=== PATIENT | female | born 1965 | race Caucasian/White ===

== ENCOUNTER 2020-04-29 13:03 | Outpatient (REF) | payer OTHER, SELFPAY ==
--- NOTE | ~2020-04-29 | US_ITS ---
EXAMINATION: LEFT HIP 2 VIEWS CLINICAL INFORMATION: Pain COMPARISON: None TECHNIQUE: 2 views FINDINGS: No femoral head lesion or deformity. Joint spaces maintained. No soft tissue abnormality. US/US venous duplex LE LT IMPRESSION: No osseous or joint space abnormality. EXAMINATION: LEG VENOUS ULTRASOUND WITH DOPPLER, LEFT CLINICAL INFORMATION: Pain COMPARISON: None TECHNIQUE: Deep venous ultrasound using grayscale and duplex Doppler. FINDINGS: No evidence of any DVT. Normal compressibility and phasic waveforms with respiration. No popliteal fossa abnormality. IMPRESSION: No DVT demonstrated in the left lower extremity.
--- NOTE | ~2020-04-29 | XR_ITS ---
EXAMINATION: LEFT HIP 2 VIEWS CLINICAL INFORMATION: Pain COMPARISON: None TECHNIQUE: 2 views FINDINGS: No femoral head lesion or deformity. Joint spaces maintained. No soft tissue abnormality. XR/XR hip LT min 2V IMPRESSION: No osseous or joint space abnormality. EXAMINATION: LEG VENOUS ULTRASOUND WITH DOPPLER, LEFT CLINICAL INFORMATION: Pain COMPARISON: None TECHNIQUE: Deep venous ultrasound using grayscale and duplex Doppler. FINDINGS: No evidence of any DVT. Normal compressibility and phasic waveforms with respiration. No popliteal fossa abnormality. IMPRESSION: No DVT demonstrated in the left lower extremity.
== END 2020-04-29 13:04 | disposition home or self-care (01) ==
LOC: HO.HMGCX 13:03
PROVIDERS: PCP Internal Medicine; Visit Provider Internal Medicine
DX: M79.662 Pain in left lower leg (principal); M25.552 Pain in left hip
CPT/HCPCS: 73502; 93971

== ENCOUNTER 2020-06-22 11:14 | Outpatient (REF) | payer OTHER, SELFPAY ==
--- NOTE | ~2020-06-22 | MM_ITS ---
EXAMINATION: MM SCREENING DIGITAL BREAST TOMOSYNTHESIS, BILATERAL CLINICAL INFORMATION: Screening. Asymptomatic. The lifetime risk of breast cancer based on the Tyrer-Cuzick Model is 9.7%. COMPARISON: Mammography: October 24, 2017 and studies dating back to November 26, 2011 TECHNIQUE: Digital breast tomosynthesis is performed in both the craniocaudal and mediolateral oblique views along with computer-aided detection (CAD). Synthesized 2D images are generated from the tomosynthesis. FINDINGS: The breasts are almost entirely fatty (ACR BI-RADS breast composition Category a). There are no significant masses, abnormal calcifications, or other abnormalities. MM/MM tomosynthesis screening BI IMPRESSION: There are no significant changes from prior study. ASSESSMENT: BI-RADS 1: Negative RECOMMENDATION: Routine annual mammography screening. This patient's information was entered into a reminder system with a target due date for their next mammogram.
== END 2020-06-22 11:15 | disposition home or self-care (01) ==
LOC: HO.MAMMO 11:14
PROVIDERS: PCP Internal Medicine; Visit Provider Internal Medicine
DX: Z12.31 Encounter for screening mammogram for malignant neoplasm of breast (principal)
CPT/HCPCS: 77063; 77067

== ENCOUNTER 2022-01-20 13:53 | Outpatient (REF) | payer OTHER, SELFPAY ==
--- NOTE | ~2022-01-20 | XR_ITS ---
EXAMINATION: XR HIP, LEFT CLINICAL INFORMATION: Left hip pain. COMPARISON: 04/29/2020 TECHNIQUE: Two views of the left hip. FINDINGS: There is no evidence of acute fracture or dislocation of the left hip. The hip joint space appears maintained with some increased sclerosis about the superior acetabulum where there are also some subchondral cysts present which were present on prior study. No femoral head collapse identified. No destructive bony lesions are appreciated. XR/XR hip LT min 2V IMPRESSION: Stable degenerative change of the left hip with superior acetabular subchondral cysts.
== END 2022-01-20 13:54 | disposition home or self-care (01) ==
LOC: HO.HMGCX 13:53
PROVIDERS: PCP Internal Medicine; Visit Provider Internal Medicine
DX: M25.552 Pain in left hip (principal)
CPT/HCPCS: 73502

== ENCOUNTER 2022-03-10 07:57 | Emergency (ER) | payer OTHER, SELFPAY ==
--- NOTE | ~2022-03-10 | CT_ITS ---
EXAMINATION: CT FACIAL BONES WITH CONTRAST CLINICAL INFORMATION: Right-sided facial swelling. Rule out deep abscess COMPARISON: None TECHNIQUE: 85 cc Omnipaque 350 intravenous contrast was administered. Contiguous helical axial tomographic images through the face were obtained with coronal and sagittal reformatted images obtained and reviewed as well. This CT examination was performed using dose optimization techniques as appropriate, variously including the following: *Automated exposure control *Adjustment of mA and/or kV according to patient size (this includes techniques or standardized protocols for targeted exams where dose is matched to indication/reason for exam; i.e. extremities or head) *Use of iterative reconstruction technique DLP: 374 mGy-cm FINDINGS: There is asymmetric soft tissue induration and hyperenhancement of the right facial soft tissues at the level of the maxilla but no discrete abscess is seen. There is right premalar and infraorbital soft tissue induration and hyperenhancement but no discrete abscess or fluid collection. The paranasal sinuses are well-developed and clear. There is partial opacification of the left mastoid air cells. Globes and orbits are normal. Multiple absent and abnormal teeth are seen consistent with dental caries. CT/CT facial bones w IV con IMPRESSION: Abnormal soft tissue induration and hyperenhancement within the right facial soft tissues as described above. The inflammatory changes extend to the inferior orbit but there are no retro-orbital abnormalities. No discrete fluid collection to suggest abscess. Multiple absent and abnormal teeth are seen. Consider dedicated dental examination.
[2022-03-10 08:00] VITALS: BP 113/73; PULSE 97; RESP 18; TEMP 35.6; O2SAT 95; BMI 34.2
--- NOTE | 2022-03-10 08:31 | ED.DENTAL ---
HPI - Dental/Oral General Chief complaint: Dental/Oral Stated complaint: Dental Infection Time Seen by Provider: 03/10/22 08:05 Source: patient Mode of arrival: ambulatory History of Present Illness HPI Narrative: 56-year-old female with no significant past medical history presented to the ED complaining of right-sided facial swelling and right upper dental pain x 2 weeks. Patient admits to finishing dose of Clindamycin after new year's, then saw PCP who prescribed Keflex which pt reports made sx worse, now on higher dose of Clindamycin and Flagyl x2 days without improvement and was instructed to come to the ED. Reports increasing swelling to top gums with slight drainage. Admits pain radiates to right ear. Denies posterior oropharyngeal swelling, difficulty/inability to swallow, fever, chills, SOB MD Complaint: tooth pain Related Data Allergies Allergy/AdvReac Type Severity Reaction Status Date / Time Penicillins Allergy Hypotension Verified 03/10/22 08:02 Review of Systems Review of Systems: Constitutional: No Fever, No Chills, No Fatigue, No Malaise ENT/Mouth: +facial swelling, +dental pain, Ear Pain, No Nasal Congestion, No Sinus Pain, No Hoarseness, No sore throat, No Rhinorrhea, No Swallowing Difficulty Eyes: No Eye Pain, No Swelling, No Redness, No Vision Changes Cardiovascular: No Chest Pain, No SOB Respiratory: No Cough, No Sputum, No Dyspnea Gastrointestinal: No Nausea, No Vomiting, No Diarrhea, No Constipation, No Abdominal pain, Musculoskeletal: No joint pain, No Myalgias, No Joint Swelling Skin: No Skin Lesions, No rash Neuro: No Weakness, No Dizziness, No Headache Yes all other systems are reviewed and are negative Constitutional: Constitutional: Reports as per HPI [facility] Past Medical History Attestation statement: The following information was validated with the patient. Social History Social History Alcohol intake: unknown Smoked in Last 30 Days: Yes Use of substances other than those prescribed or required for medical reasons: No Advance Directives: No Advance Directives Information Provided: No Patient : No Physical Exam Vital Signs: Vital Signs: Last Vital Signs Temp 96.0 F L 03/10/22 08:00 Pulse 97 03/10/22 08:00 Resp 18 03/10/22 08:00 BP 113/73 03/10/22 08:00 Pulse Ox 95 03/10/22 08:00 O2 Del Method 03/10/22 08:00 BMI result Body Mass Index 34.2 Const: General: cooperative, healthy appearing and no acute distress Orientation/consciousness: patient oriented x3 Limitations: no limitations HEENT: Other: + right-sided facial swelling/edema noted. No trismus. Poor dentition with multiple caries. Right upper posterior molar chronically cracked. + palpable fluctuant abscess to right incisor. No surrounding cellulitis. Head: Yes normal to inspection and Yes atraumatic Ears: hearing grossly normal bilaterally, external ears normal, TM's normal bilaterally and mastoids normal General nose exam: Normal external nose present Teeth and gingiva: poor dentition Throat: Yes posterior oropharynx normal, Yes tonsils normal, Yes uvula midline, No peritonsillar mass, No uvula laterally displaced and No uvular edema Eyes: General: appearance normal, both eyes and all related structures EOM: EOMs intact bilaterally Neck: Neck: Yes normal visual inspection, Yes full ROM, Yes no lymphadenopathy and Yes no meningeal signs Resp: Effort & Inspection: normal respiratory effort, not labored and no respiratory distress Cardio: Rate: regular rate Skin: Rashes: no rashes Wounds: no wounds Neuro: General: patient oriented x3, tone normal and no meningeal signs Gait exam (Neuro): Normal gait present Extrem: General: Yes normal to inspection Course Course Course Narrative: -1112--no leukocytosis. Labs otherwise reassuring CT facial bones w IV con IMPRESSION: Abnormal soft tissue induration and hyperenhancement within the right facial soft tissues as described above. The inflammatory changes extend to the inferior orbit but there are no retro-orbital abnormalities. No discrete fluid collection to suggest abscess. ? Multiple absent and abnormal teeth are seen. Consider dedicated dental examination. >> will I&D localized abscess > likely cause of persistent infection rather than failed outpatient antibiotic Recommended patient continue previously prescribed clindamycin and metronidazole with close dentist follow-up. Admits has appointment to get teeth extracted at the end of the month. Results discussed with patient including worrisome signs and symptoms and strict return precautions, and when to return to the emergency department. They verbalized understanding and feel safe for discharge at this time. Medications Administered Discontinued Medications Generic Name Dose Route Start Last Admin Trade Name Freq PRN Reason Stop Dose Admin Sodium Chloride 1,000 mls @ 999 mls/hr 03/10/22 08:30 03/10/22 09:46 Ns IV 03/10/22 09:30 Infused .Q1H1M AUGUSTIN Infusion Clindamycin Phosphate 600 mg in 50 mls @ 100 mls/hr 03/10/22 08:35 03/10/22 09:46 Cleocin IV 03/10/22 09:04 Infused ONCE ONE Infusion Iohexol 85 ml 03/10/22 10:10 03/10/22 10:11 Iohexol 350 Mg/Ml 75 Ml Infus..Btl IV 03/10/22 10:11 85 ml ONCE ONE Administration Lidocaine HCl 2 ml 03/10/22 08:23 03/10/22 09:00 Lidocaine Hcl 1 % Mpf 2 Ml Vial INFILTRATI 03/10/22 08:24 2 ml ONCE ONE Administration Methylprednisolone Sodium Succinate 60 mg 03/10/22 08:35 03/10/22 09:00 Methylprednisolone Sod Succ 125 Mg/2 Ml Vial IVPUSH 03/10/22 08:36 60 mg ONCE ONE Administration Medical Decision Making Medical Decision Making [facility] Narrative: 56-year-old female with no significant past medical history presented to the ED complaining of right-sided facial swelling and right upper dental pain x 2 weeks. On exam vital signs stable, NAD, nontoxic appearing, physical exam as above. Concern for dental abscess that has not yet been drained vs expanding cellulitis/edema or deeper infection. No evidence of COMPLEX CARE NURSE. Low suspicion of mastoiditis, chronic otitis externa, or intracranial. Low suspicion for severe sepsis Plan: labs lactic/blood cultures, Facial CT, IV dose of Clindamycin, IV Solu-Medrol, reassess Differential Diagnosis Differential Diagnoses: The differential diagnosis associated with the presentation includes As above Admission/Observation Consideration of admission/observation: Escalation of care including admission/observation considered Patient does not meet inpatient criteria, labs reassuring, no evidence of sepsis Consult Healthcare Provider Dr. Barron, ED Attending Lab Data [facility] Lab Attestation statement: I reviewed the patient's lab results. 03/10/22 08:49 03/10/22 08:49 Labs: Lab Results 03/10/22 03/10/22 03/10/22 Range/Units 08:49 08:49 08:49 WBC 8.9 (4.8-10.8) X10*3/uL RBC 4.50 (4.20-5.50) X10*6/uL Hgb 14.1 (12.0-16.0) g/dl Hct 42.8 (37.0-47.0) % MCV 95.1 (80.0-98.0) fL MCH 31.3 (27.0-33.0) pg MCHC 32.9 (31.0-35.0) g/dl RDW 13.8 (11.0-16.0) % Plt Count 258 (160-400) X10*3/uL MPV 9.8 (9.4-12.3) fL Immature Gran % (Auto) 0.4 (0.0-0.4) % Neut % (Auto) 79.6 H (45-73) % Lymph % (Auto) 10.5 L (20-40) % Emmons % (Auto) 6.6 (2-11) % Eos % (Auto) 2.5 (0-4) % Baso % (Auto) 0.4 (0-2) % Lymph # (Auto) 0.9 L (1.2-4.9) X10*3/uL Emmons # (Auto) 0.6 (0.1-1.2) X10*3/uL Eos # (Auto) 0.2 (0.0-0.4) X10*3/uL Baso # (Auto) 0.0 (0.0-0.2) X10*3/uL Abs Immat Gran (auto) 0.04 H (0.00-0.03) X10*3/uL Absolute Neuts (auto) 7.1 (2.0-8.3) x10*3/uL Absolute Nucleated RBC 0.000 (0.0-0.012) X10*3/uL Nucleated RBC % (auto) 0.0 (0.0-0.2) /100WBC Sodium 140 (135-145) mmol/L Potassium 4.2 (3.3-5.1) mmol/L Chloride 107 (96-108) mmol/L Carbon Dioxide 25 (22-29) mmol/L Anion Gap 12 (12-20) BUN 11 (9-16) mg/dL Creatinine 0.82 (0.5-1.4) mg/dL Estim Creat Clear Calc 98.0 Estimated GFR > 60 Random Glucose 103 (60-115) mg/dL Lactic Acid 0.8 (0.5-2.0) mmol/L Calcium 8.8 (8.4-10.2) mg/dL Total Bilirubin 0.6 (0.0-1.0) mg/dL Direct Bilirubin 0.2 (0.0-0.5) mg/dL AST 20 (5-31) U/L ALT 15 (0-31) U/L Alkaline Phosphatase 93 (39-117) U/L Total Protein 7.1 (6.5-8.0) g/dL Albumin 4.0 (3.5-5.0) g/dL Radiology Impression Discussion of test interpretation with radiology: I have reviewed the radiologist's reading. External Record Review Outpatient medications Prescription Management I considered prescription management with: Pain Medication and Antibiotic Social Determinants Absence of dental insurance Procedures Abscess I/D Site: oral Local Anesthetic: lidocaine 1% Amount of anesthesia used (mL): 0.5 Technique: needle aspiration Sent for culture/gram staining?: No Packing used?: none Discharge Plan Discharge Clinical Impression: Gingival abscess Patient Disposition: Home, Self-Care Instructions: Dental Abscess (ED) Additional Instructions: Continue taking previously prescribed antibiotics. Swish and spit with warm salt water at home Have close follow-up with her doctor/dentist Take Tylenol and Motrin for pain/swelling If symptoms persist or worsen, you have fever, increasing swelling or pain return to the emergency department Referrals: Kashif Melton MD [Primary Care Provider] - 3 days (For re-evaluation) Interventions: ED Discharge Assessment Last Done: 03/10/22 11:43 Discharge Date/Time: 03/10/22 11:44
[2022-03-10 08:53] LABS: MANUAL DIFF FLAG NO
[2022-03-10 08:55] LABS: Basophils Percent Auto 0.4 % (0-2); Eosinophils Absolute Auto 0.2 X10*3/uL (0.0-0.4); Eosinophils Percent Auto 2.5 % (0-4); Hematocrit 42.8 % (37.0-47.0); Hemoglobin 14.1 g/dl (12.0-16.0); Imm Gran Abs Auto 0.04 X10*3/uL (0.00-0.03); Imm Gran Pct Auto 0.4 % (0.0-0.4); Lymphocytes Absolute Auto 0.9 X10*3/uL (1.2-4.9); Lymphocytes Percent Auto 10.5 % (20-40); Mean Corpuscular HGB Conc 32.9 g/dl (31.0-35.0); Mean Corpuscular Hemoglobin 31.3 pg (27.0-33.0); Mean Corpuscular Volume 95.1 fL (80.0-98.0); Mean Platelet Volume 9.8 fL (9.4-12.3); Monocytes Absolute Auto 0.6 X10*3/uL (0.1-1.2); Monocytes Percent Auto 6.6 % (2-11); Neutrophils Absolute Auto 7.1 x10*3/uL (2.0-8.3); Neutrophils Percent Auto 79.6 % (45-73); Platelet Count 258 X10*3/uL (160-400); Red Cell Distribution Width 13.8 % (11.0-16.0); White Blood Count 8.9 X10*3/uL (4.8-10.8)
[2022-03-10] MEDS: 0.9 % Sodium Chloride 1,000 ML 999 ML IV (08:56)
[2022-03-10] MEDS: Lidocaine HCl 1 % MPF 2 ML VIAL INFILTRATI (09:00)
[2022-03-10] MEDS: methylPREDNISolone Sod Succ 125 MG/2 ML VIAL 60 MG IVPUSH (09:00)
[2022-03-10 09:11] LABS: Lactic Acid 0.8 mmol/L (0.5-2.0)
[2022-03-10] MEDS: Clindamycin Phosphate/D5W 600 MG/50 ML PIGGYBACK 100 MG IV (09:11)
[2022-03-10 09:21] LABS: Alanine Aminotransferase 15 U/L (0-31); Alkaline Phosphatase 93 U/L (39-117); Anion Gap 12 (12-20); Aspartate Amino Transferase 20 U/L (5-31); Bilirubin Direct 0.2 mg/dL (0.0-0.5); Bilirubin Total 0.6 mg/dL (0.0-1.0); Blood Urea Nitrogen 11 mg/dL (9-16); Calcium 8.8 mg/dL (8.4-10.2); Carbon Dioxide 25 mmol/L (22-29); Chloride 107 mmol/L (96-108); Estimated Glomerular Filt Rate > 60; Glucose Random 103 mg/dL (60-115); Potassium 4.2 mmol/L (3.3-5.1); Sodium 140 mmol/L (135-145); Total Protein 7.1 g/dL (6.5-8.0)
[2022-03-10] MEDS: iohexoL 350 MG/ML 75 ML INFUS..BTL 85 ML IV (10:11)
== END 2022-03-10 11:44 | disposition home or self-care (01) ==
PROVIDERS: Physician Assistant; Emergency Provider Emergency Medicine; PCP Internal Medicine
DX: R60.0 Localized edema (principal); K05.20 Aggressive periodontitis, unspecified; Z79.899 Other long term (current) drug therapy
CPT/HCPCS: 36415; 41800; 70487; 80048; 80076; 83605; 85025; 87040; 96361; 96374; 96375; 99284; J2930; Q9967

== ENCOUNTER 2022-04-24 13:41 | Outpatient (REF) | payer OTHER, SELFPAY ==
--- NOTE | ~2022-04-24 | FL_ITS ---
EXAMINATION: FL ARTHROGRAM HIP, LEFT CLINICAL INFORMATION: Unilateral primary osteoarthritis. COMPARISON: None. TECHNIQUE: Following explaining fluoroscopy-guided left hip steroid injection procedure, benefits and risks, a written consent was obtained. Patient was placed supine on fluoroscopy table and left anterior aspect of the hip joint space was exposed. A marker was placed along the injection site along the lateral hip on the skin. The skin marker was cleaned with 2% chlorhexidine solution. 1% lidocaine was injected at the puncture site. A 22-gauge spinal needle was then inserted from the skin to the lateral border of the left femoral neck and 2 mL of nonionic contrast was injected. Subsequently, 80 mg of Depo-Medrol and 7 mL of 1% lidocaine was injected as an 8 mL volume and needle withdrawn. A simple Band-Aid was applied at the puncture site. Patient tolerated the procedure extremely well. FINDINGS: There are no fractures or dislocations. No joint effusion is identified. No bone, joint or soft tissue abnormality is demonstrated. There is contrast opacifying an irregular-appearing joint space likely due to a hypertrophied synovium. Fluoroscopy-guided 80 mg of Depo-Medrol and 1% lidocaine was injected. FLUOROSCOPY TIME: 1.1 min. DOSE AREA PRODUCT: 15.080 uGy-m2 (microgray-meter squared). FL/FL arthrogram hip LT IMPRESSION: Successful fluoroscopically-guided left hip steroid injection.
== END 2022-04-24 13:42 | disposition home or self-care (01) ==
LOC: HO.XRAY 13:41
PROVIDERS: PCP Internal Medicine; Visit Provider Physician Assistant
DX: M16.12 Unilateral primary osteoarthritis, left hip (principal)
CPT/HCPCS: 27093; 73525

== ENCOUNTER 2022-05-16 09:35 | Outpatient (REF) | payer OTHER, SELFPAY ==
--- NOTE | ~2022-05-16 | XR_ITS ---
EXAMINATION: XR TIBIA AND FIBULA, RIGHT CLINICAL INFORMATION: Leg pain COMPARISON: None available. TECHNIQUE: AP and lateral views of the right tibia and fibula were obtained. FINDINGS: The bones and soft tissues are normal. No fracture. No osseous lesions. XR/XR tibia fibula RT 2V IMPRESSION: Normal right tibia and fibula.
== END 2022-05-16 09:36 | disposition home or self-care (01) ==
LOC: HO.HOSX 09:35
PROVIDERS: PCP Internal Medicine; Visit Provider Physician Assistant
DX: M89.8X6 Other specified disorders of bone, lower leg (principal); M16.12 Unilateral primary osteoarthritis, left hip
CPT/HCPCS: 73590

== ENCOUNTER 2022-08-07 17:00 | Outpatient (RCR) | payer OTHER, SELFPAY ==
--- NOTE | 2022-07-31 07:54 | MHC.PT.EP ---
[facility] [place] Office [place] Office [place] Office [address] Driss Lainez [address] [phone] F: [phone] F: [phone] F: [phone] F: [phone] Physical Therapy Plan of Care Date of Evaluation: Date of Surgery: Diagnosis: unilateral primary OA, L hip Assessment: 56 y/o female referred to PT with L hip OA. S/s consistent with trochanteric bursitis and hip OA and ?overlapping lumbar dysfunction secondary to decreased L hip AROM, decreased L hip strength, increased pain, increased TTP over bursa, and impaired gait pattern resulting in pain and difficulty with walking, standing, stairs, sleeping, donning/doffing shoes/socks, and rolling in bed. REcommend PT 2x/week for 5 weeks to address impairments, implement HEP, and optimize functional mobility. Pt can only come 1x/week d/t high co=pay Frequency and Duration: The patient will be seen 1x/week for 6 weeks Short Term Goals: 3 weeks Compliant with HEP Improve L hip AROM by 5 degrees all planes to optimize muscle-length tension relationship Ehr Trainer Goals: 6 weeks I with HEP and self management of sx Pt will demonstrate improved stair management showing step through pattern and one rail Pt will demonstrate more symmetrical gait pattern with pain < 4/10 Treatment Plan: Modalities to reduce pain, spasms and effusion. Manual therapy to restore motion and function. Therapeutic exercise to improve strength and flexibility. Neuromuscular re-education for posture and balance. Therapeutic activities to return to functional activities of daily living. Electronically signed by: Sravani Gonzalez PT Please sign and return to therapist. Thank you for your referral.
--- NOTE | 2022-10-09 10:54 | MHC.PT.DC ---
[facility] [place] Office [place] Office [place] Office [address] Driss Lainez [address] [phone] F: [phone] F: [phone] F: [phone] F: [phone] Physical Therapy Discharge Report Diagnosis: unilateral primary OA, L hip Date of Surgery: Date of Evaluation: 07/31/22 Date of Discharge: 10/09/22 Treatments to Date: 3 Cancellations to Date: 0 No Shows to Date: 0 Discharge Status: Independent with HEP Discharge Summary: Pt only attended 2 visits following initial evaluation with HEP established. D/c at this time d/t lack of f/u with further visits. Electronically signed by: Sravani Gonzalez PT Please sign and return to therapist. Thank you for your referral.
== END 2022-10-09 10:55 | disposition home or self-care (01) ==
LOC: HO.PTCHIC 17:00
PROVIDERS: PCP Internal Medicine; Visit Provider Physician Assistant
DX: M16.12 Unilateral primary osteoarthritis, left hip (principal)
CPT/HCPCS: 97110; 97140; 97161

== ENCOUNTER 2022-09-14 10:06 | Outpatient (AMB) | payer OTHER, SELFPAY ==
[2022-09-14 10:10] VITALS: BMI 34.2
--- NOTE | 2022-09-14 10:10 | MHC.OFFVIS ---
Intake Vital Signs 09/14/22 10:10 Height 5 ft 8 in Weight 225 lb BMI 34.2 Intake Visit Reasons: OV - Left Hip OA - Arthrogram 04/24/22 Intake Note: Crista is a 56 year old female who presents today for a follow up for her left hip pain, arthrogram 04/24/22. Patient reports her hip injection gave her a couple days of relief. She states she wasnt sure if she had to take it easy when she got the shot. Allergies Penicillins Allergy (Verified 09/14/22 10:13) Hypotension HPI OV - Left Hip OA - Arthrogram 04/24/22 HPI Details 56-year-old female who presents in the office today for a follow up of left hip pain. She reports an increase in pain after she went on vacation. The patient had a left hip arthrogram performed on 04/24/2022, which gave her a few days relief. She confirms left hip and right knee taping. Patient is going on a cruise in 11/2022. She would like to get the cortisone injection in 10/2022. [facility] Medical History (Updated 09/14/22 @ 10:14 by Yesenia Corado) History of high cholesterol Social History Alcohol intake: current Patient Tobacco Use Status: Former Tobacco user Current occupational status: employed Review of Systems Const All systems reviewed & are unremarkable except as noted in HPI and below Physical Exam Vital Signs: BMI result Body Mass Index 34.2 Const General: cooperative and no acute distress Orientation/consciousness: patient oriented x3 Resp Effort & Inspection: normal respiratory effort and able to speak in complete sentences Cardio Peripheral pulses: Peripheral pulses 2+ throughout Neuro General: patient oriented x3 Extrem Other: Left hip: Normal to inspection. No ecchymosis, erythema, or edema. Full hip ROM in all planes. No tenderness to palpation over the greater trochanteric bursa. 3/5 strength with resisted hip flexion, knee extension, abduction, and abduction. Slightly limited internal and external rotation due to groin pain. Able to perform straight leg raise. NVI. Psych Mental Status: mental status grossly normal Assessment & Plan Assessment & Plan (1) Osteoarthritis of left hip: Code(s): M16.12 - Unilateral primary osteoarthritis, left hip Plan Ms. Rodríguez is a 56-year-old female who presents in the office today for a follow up of left hip pain. She reports an increase in pain after she went on vacation. The patient had a left hip arthrogram performed on 04/24/2022, which gave her a few days relief. She confirms left hip and right knee taping. Patient is going on a cruise in 11/2022. She would like to get the cortisone injection in 10/2022. I will place the order for the patient to have a left hip cortisone injection under ultrasound. She will continue to work with physical therapy. I discussed the role of conservative treatment verses surgical intervention. Follow up will be PRN, or sooner if needed. Orders: Orders FL arthrogram hip LT Today M16.0 - Bilateral primary osteoarthritis of hip Patient Instructions: Scribed for Gayatri Cardoso PA-C by Malika Suero, biomedical equipment technician, on 09/14/2022 at 10:07 am, EST. Your attestation Coding Level of Care Code Est Pt Level 3 (01565) Diagnoses Osteoarthritis of left hip M16.12
== END 2022-09-14 10:34 | disposition home or self-care (01) ==
PROVIDERS: PCP Internal Medicine; Visit Provider Physician Assistant
DX: M16.12 Unilateral primary osteoarthritis, left hip (principal)
CPT/HCPCS: 99213

== ENCOUNTER → 2022-09-14 10:06 | Outpatient (BNVA) | payer OTHER, SELFPAY | PROVIDERS: PCP Internal Medicine; Visit Provider Physician Assistant ==

== ENCOUNTER 2022-11-20 11:46 | Outpatient (REF) | payer OTHER, SELFPAY ==
--- NOTE | ~2022-11-20 | FL_ITS ---
EXAMINATION: XR ARTHROGRAM HIP, LEFT CLINICAL INFORMATION: Significant osteoarthritis. COMPARISON: Fluoroscopy-guided steroid injection 04/24/2022. TECHNIQUE: Following explaining fluoroscopy-guided left hip steroid injection procedure, benefits and risks, informed written consent was obtained. Patient was placed supine on fluoroscopy table and left anterior aspect of the joint space was exposed. The area was cleaned in the usual sterile manner. 1% lidocaine was injected at puncture site. A 22-gauge spinal needle was then inserted from the marked site on the skin into the joint space along the lateral femoral neck and 2 to 3 mL of nonionic contrast was injected under fluoroscopy. A single image was obtained documenting contrast in the joint space. Subsequently a combination of 80 mg of Depo-Medrol, 8 mL of 1% lidocaine as a 10 mL volume with saline was injected and needle withdrawn. Complete hemostasis achieved at puncture site. Simple dressing applied postprocedure. Patient tolerated procedure extremely well. FINDINGS: There is significant loss of left hip joint space with sclerosis along the lateral joint space. No lytic process seen. There is no fracture. FLUOROSCOPY TIME: 32 seconds. DOSE AREA PRODUCT: 1095 uGy-m2 (microgray-meter squared) FL/FL arthrogram hip LT IMPRESSION: Successful ultrasound-guided left hip steroid injection performed without immediate complications.
== END 2022-11-20 11:47 | disposition home or self-care (01) ==
LOC: HO.XRAY 11:46
PROVIDERS: Visit Provider Physician Assistant
DX: M16.0 Bilateral primary osteoarthritis of hip (principal)
CPT/HCPCS: 27093; 73525

== ENCOUNTER → 2022-11-20 11:48 | Outpatient (BNV) | payer OTHER, SELFPAY | PROVIDERS: Visit Provider Radiology Diagnostic Radiology | DX: M16.12 Unilateral primary osteoarthritis, left hip (principal) | CPT/HCPCS: 27093; 73525 ==

== ENCOUNTER 2023-02-01 13:24 | Outpatient (REF) | payer OTHER, SELFPAY ==
--- NOTE | ~2023-02-01 | FL_ITS ---
Left hip steroid injection Indications: Left hip pain. Orthopedics request intra-articular steroid injection Procedure: Risks and benefits and possible complications were discussed with the patient and the consent form was signed. The patient was placed supine on the fluoroscopy table. The left hip was prepped and draped in normal sterile fashion. 1% buffered lidocaine was used for anesthesia. A 22-gauge spinal needle was used to access the hip joint. Intra-articular position of the needle within the hip joint was verified using 3 cc of Omnipaque 300. A total of 5 mL of 1% lidocaine and 80 mg Depo-Medrol was then injected into the hip joint. The needle was then removed and a Band-Aid was applied to the injection site. The patient tolerated the procedure well. There were no immediate complications. FL/FL arthrogram hip LT Impression: Fluoroscopic left hip steroid injection The procedure was performed by Domingo Bautista PA-C, and directly supervised by Dr. Hartmann.
== END 2023-02-01 13:25 | disposition home or self-care (01) ==
LOC: HO.XRAY 13:24
PROVIDERS: Visit Provider Physician Assistant
DX: M16.12 Unilateral primary osteoarthritis, left hip (principal)
CPT/HCPCS: 27093; 73525

== ENCOUNTER → 2023-02-01 13:28 | Outpatient (BNV) | payer OTHER, SELFPAY | PROVIDERS: Visit Provider Student in an Organized Health Care Education/Training Program | DX: M16.12 Unilateral primary osteoarthritis, left hip (principal) | CPT/HCPCS: 20610; 77002 ==

== ENCOUNTER 2023-05-03 12:55 | Outpatient (REF) | payer OTHER, SELFPAY ==
--- NOTE | ~2023-05-03 | FL_ITS ---
LEFT HIP STEROID INJECTION INDICATIONS: Left hip pain. Orthopedic surgery requests intra-articular steroid injection PROCEDURE: Risks and benefits and possible complications were discussed with the patient and the consent form was signed. The patient was placed supine on the fluoroscopy table. The left hip was prepped and draped in normal sterile fashion. 1% buffered lidocaine was used for anesthesia. A 22-gauge spinal needle was used to access the left hip joint. Intra-articular position of the needle within the hip joint was verified using 3 cc of Omnipaque 300. A total of 5 mL of 1% lidocaine and 80 mg Depo-Medrol was then injected into the hip joint. The needle was then removed and a Band-Aid was applied to the injection site. The patient tolerated the procedure well. There were no immediate complications. Solitary image demonstrates complete superior joint space loss with [id number] appearance, subchondral sclerosis and cystic changes of the femoral head and superior acetabulum, and marginal acetabular and subcapital osteophytes. Findings are consistent with moderate to advanced osteoarthrosis. FL/FL arthrogram hip LT IMPRESSION: Successful fluoroscopic guided left hip intra-articular steroid injection. The procedure was performed by Domingo Bautista PA-C, and directly supervised by Dr. Montoya.
== END 2023-05-03 12:56 | disposition home or self-care (01) ==
LOC: HO.XRAY 12:55
PROVIDERS: PCP Internal Medicine; Visit Provider Physician Assistant
DX: M16.12 Unilateral primary osteoarthritis, left hip (principal)
CPT/HCPCS: 27093; 73525

== ENCOUNTER → 2023-05-03 12:57 | Outpatient (BNV) | payer OTHER, SELFPAY | PROVIDERS: PCP Internal Medicine; Visit Provider Physician Assistant Surgical | DX: M16.12 Unilateral primary osteoarthritis, left hip (principal) | CPT/HCPCS: 20610; 77002 ==

== ENCOUNTER 2023-05-22 16:56 | Outpatient (REF) | payer OTHER, SELFPAY ==
--- NOTE | ~2023-05-22 | XR_ITS ---
EXAMINATION: XR KNEE, LEFT CLINICAL INFORMATION: Bilateral knee pain COMPARISON: None available. TECHNIQUE: Four views of the left knee. FINDINGS: No fracture or joint effusion. Tricompartment small marginal osteophytes mild narrowing of the patellofemoral joint compartment. Question of 3 mm loose body within the knee joint, best appreciated on the lateral view. XR/XR knee LT 4V IMPRESSION: 1. Mild osteoarthritis. 2. Question of 3 mm loose body within the knee joint.
--- NOTE | ~2023-05-22 | XR_ITS ---
EXAMINATION: XR KNEE, RIGHT CLINICAL INFORMATION: Bilateral knee pain COMPARISON: None available. TECHNIQUE: Four views of the right knee. FINDINGS: No fracture. Small joint effusion. Small tricompartment marginal osteophytes. Mild to moderate narrowing of the patellofemoral joint is seen. No abnormal soft tissue calcification. XR/XR knee RT 4V IMPRESSION: Mild to moderate osteoarthritis of the patellofemoral joint.
== END 2023-05-22 16:57 | disposition home or self-care (01) ==
LOC: HO.XRAY 16:56
PROVIDERS: PCP Internal Medicine; Visit Provider Internal Medicine
DX: M25.561 Pain in right knee (principal); M25.562 Pain in left knee
CPT/HCPCS: 73564

== ENCOUNTER 2023-05-24 08:54 | Outpatient (AMB) | payer OTHER, SELFPAY ==
--- NOTE | 2023-05-24 08:57 | A.OFFVIS_ITS ---
Intake Intake Visit Reasons: Newprob-B/L knee pain-mainly right knee pain Intake Note: Crista is a 57 year old female who presents today for a evaluation of her bilateral knee pain. Patient reports having ongoing pain for a couple months, however its been getting worse for about a month. She states that her right knee is worse than the left knee. Pain is worse when sitting, standing, using the stairs and walking. Patient has tried and failed 3 + Naproxen/ibuprofen.Patient has tried and failed 3 + months of at home exercises. Patient has tried and failed knee brace. Patient has had a cortisone injection in the past for her left knee which gave her 4-5 months of relief. Allergies Penicillins Allergy (Verified 05/24/23 09:03) Hypotension HPI Newprob-B/L knee pain-mainly right knee pain HPI Details 57-year-old female who presents in the [facility] today for an evaluation of bilateral knee pain. Patient reports ongoing pain for a couple of months, increasing in the past month. She report the right knee is worse then the left knee. Pain increases when sitting, standing, use of stairs, or ambulating. Cisco todd has tried and failed more then 3 months of Naproxen and Ibuprofen. She has tried and failed 3 months of home exercises. She has also tried a knee brace with no relief. Patient reports the pain radiates down the bilateral lower extremities. She states she has a pinched nerve in the legs. She denies numbness and tingling. She reports having bilateral lower extremity edema. She is interested in surgical intervention. She states the pain is affecting her daily activities and keeping her from doing what she would like. Patient states she had a cortisone injection in the past that gave her 4-5 months of relief. 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 No ecchymosis, erythema, or joint effusion. No tenderness to palpation to the medial or lateral joint lines. Full knee extension and flexion. Mild crepitus felt with ROM. NVI. Left hip: Normal to inspection. No ecchymosis, erythema, or edema. Full hip ROM in all planes. No tenderness to palpation over the greater trochanteric bursa. 3/5 strength with resisted hip flexion, knee extension, abduction, and abduction. Slightly limited internal and external rotation due to significant groin pain. Able to perform straight leg raise. Positive Stinchfield test. NVI. Office Procedures Joint Injection/Drain Joint Injection/Drain Primary Site: right knee Secondary Site: left knee Prep: site was prepped using aseptic technique, ethochloride spray was applied and injection warnings given Injected: 80 mg of, DepoMedrol, with 8 mL of (2% plain lido ) and in the joint Approach Used: anterolateral Procedure: The patient tolerated the procedure well, but had some pain with the injection and there was some relief with the local anesthesia Coding 02014 - Large joint Procedure code (CPT) selection complete Assessment & Plan Assessment & Plan (1) Osteoarthritis of right knee: Code(s): M17.11 - Unilateral primary osteoarthritis, right knee (2) Osteoarthritis of left knee: Code(s): M17.12 - Unilateral primary osteoarthritis, left knee Plan Ms. Rodríguez is a 57-year-old female who presents in the office today for an evaluation of bilateral knee pain. Patient reports ongoing pain for a couple of months, increasing in the past month. She report the right knee is worse then the left knee. Pain increases when sitting, standing, use of stairs, or ambulating. Patient has tried and failed more then 3 months of Naproxen and Ibuprofen. She has tried and failed 3 months of home exercises. She has also tried a knee brace with no relief. Patient reports the pain radiates down the bilateral lower extremities. She states she has a pinched nerve in the legs. She denies numbness and tingling. She reports having bilateral lower extremity edema. She is interested in surgical intervention. She states the pain is affecting her daily activities and keeping her from doing what she would like. Patient states she had a cortisone injection in the past that gave her 4-5 months of relief. Bilateral knees: The patient was offered a cortisone injection in the bilateral knees with 80 mg of DepoMedrol. The patient was explained the risk, benefits, and alternatives to receiving this injection. After receiving consent for the injection, the patient had the procedure done while in office today. The patient tolerated the procedure well with no complications. Follow up will be PRN, or sooner if needed. Bilateral lower extremity edema: Of note on exam today, the patient was complaining of new bilateral lower leg edema. Discussed to follow up with PCP. Left hip: Dr. Sin was available to see the patient with me while in the office today and a collaborative treatment plan was made. Discussed conservative versus surgical intervention (left total hip arthroplasty). Information was given to the surgical territory manager, who was available to meet with the patient today. Patient understands that she has to wait three months from her last hip intraarticular injection before she can be scheduled for surgery. She was also instructed to be evaluated by a dentist prior to proceeding with a total hip arthroplasty. An appointment to see Physiatry was placed today for further eval uation of the lower back and nerve pain. Follow up will be pending surgical scheduling, or sooner if needed. Patient Instructions: Scribed by Malika Suero medical appliance maker, for Gayatri Cardoso PA-C on 05/24/2023 at 9:00 am, EST. Coding Level of Care Code Est Pt Level 4 (73142) Diagnoses Osteoarthritis of right knee M17.11 Osteoarthritis of left knee M17.12 CPT Codes Coding - 62840 Large joint: 93772 - Large joint ([id number])
== END 2023-05-24 10:05 | disposition home or self-care (01) ==
PROVIDERS: PCP Internal Medicine; Visit Provider Physician Assistant
DX: M17.0 Bilateral primary osteoarthritis of knee (principal); M16.12 Unilateral primary osteoarthritis, left hip
CPT/HCPCS: 20610; 99214

== ENCOUNTER → 2023-05-24 08:54 | Outpatient (BNVA) | payer OTHER, SELFPAY | PROVIDERS: PCP Internal Medicine; Visit Provider Physician Assistant | DX: M17.0 Bilateral primary osteoarthritis of knee (principal) | CPT/HCPCS: 20610; J1040 ==

== ENCOUNTER 2023-06-22 08:56 | Outpatient (RCR) | payer OTHER, SELFPAY ==
--- NOTE | 2023-06-22 10:36 | MHC.PT.DC ---
[facility] [place] Office [place] Office [place] Office [address] Driss Lainez [address] [phone] F: [phone] F: [phone] F: [phone] F: [phone] Physical Therapy Discharge Report Diagnosis: prehab LEFT Total Hip Arthroplasty Date of Surgery: Date of Evaluation: 06/22/23 Date of Discharge: Treatments to Date: 1 Cancellations to Date: No Shows to Date: Discharge Status: Discharge Summary: Patient is a pleasant 57 y.o. female who is referred to PT by Gayatri Cardoso PA-C with Dx of LEFT Total Hip Arthroplasty prehab, surgery is scheduled for 08/2023. She presents with antalgic gait, pain, weakness, limited ROM. Patient current functional limitations are ambulating, sit to stand low surfaces, stair use, putting on shoes/socks, standing to cook. This visit I reviewed non weightbearing HEP, educated her on and had her practice proper gait sequencing with cane, use of stairs with cane and railing and discussed hip precautions and DME in preparation for surgery. All patient questions were answered, no further PT at this time. Electronically signed by: Giovanny Perez, PT, DPT Please sign and return to therapist. Thank you for your referral.
== END 2023-06-22 10:37 | disposition home or self-care (01) ==
LOC: HO.PT 08:56
PROVIDERS: PCP Internal Medicine; Visit Provider Physician Assistant
DX: M16.12 Unilateral primary osteoarthritis, left hip (principal)
CPT/HCPCS: 97110; 97161; 97535

== ENCOUNTER → 2023-08-10 09:01 | Outpatient (BNVA) | payer OTHER, SELFPAY | PROVIDERS: PCP Internal Medicine; Visit Provider Orthopaedic Surgery ==

== ENCOUNTER → 2023-08-23 11:15 | Outpatient (BNV) | payer OTHER, SELFPAY | PROVIDERS: Admitting Provider Orthopaedic Surgery; PCP Internal Medicine; Visit Provider Internal Medicine Cardiovascular Disease | DX: Z01.818 Encounter for other preprocedural examination (principal) | CPT/HCPCS: 93010 ==

== ENCOUNTER 2023-08-31 10:01 | Outpatient (REF) | payer OTHER, SELFPAY ==
--- NOTE | ~2023-08-31 | XR_ITS ---
EXAMINATION: XR SHOULDER, RIGHT CLINICAL INFORMATION: Pain in right shoulder COMPARISON: None available. TECHNIQUE: Three views of the right shoulder. FINDINGS: No acute fracture or dislocation. The glenohumeral and acromioclavicular alignment is anatomic with preserved joint spaces. No acute soft tissue abnormality. No abnormal soft tissue calcifications. XR/XR shoulder RT min 2V IMPRESSION: No acute fracture or dislocation.
--- NOTE | ~2023-08-31 | XR_ITS ---
EXAMINATION: XR HIP, LEFT CLINICAL INFORMATION: Pain in the left hip COMPARISON: Left hip radiograph 01/20/2022 TECHNIQUE: One view of the pelvis and two views of the left hip. FINDINGS: Severe osteoarthritic changes involving the left hip with joint space narrowing, subchondral sclerosis and cystic changes with deformity of the left femur head. No acute fracture. The right hip is adequately aligned with mild joint space narrowing. The pubic symphysis and bilateral sacroiliac joints are intact. Degenerative changes of the visualized lower lumbar spine. Calcification in the right upper inner thigh. XR/XR hip LT min 2V IMPRESSION: Severe left hip osteoarthritic changes.
== END 2023-08-31 10:02 | disposition home or self-care (01) ==
LOC: HO.HOSX 10:01
PROVIDERS: PCP Internal Medicine; Visit Provider Physician Assistant
DX: M25.552 Pain in left hip (principal); M25.511 Pain in right shoulder; Z96.652 Presence of left artificial knee joint
CPT/HCPCS: 73030; 73502

== ENCOUNTER 2023-08-31 10:01 | Outpatient (AMB) | payer OTHER, SELFPAY ==
[2023-08-31 10:19] VITALS: BMI 34.2
--- NOTE | 2023-08-31 10:19 | A.OFFVIS_ITS ---
Vital Signs 08/31/23 10:19 Height 5 ft 8 in Weight 225 lb BMI 34.2 Intake Visit Reasons: Pre-Op: L LEYDA w/NE 09/04/23 Intake Note: Crista is a 57 year old female who presents today pre operatively for Left LEYDA w/NE 09/04/23. Patient reports she is having a lot of pain in her right shoulder for about 2 days. Allergies Penicillins Allergy (Verified 08/31/23 10:21) Hypotension Medication List - Last Reconciled 08/31/23 by Aldo Kiser PA-C acetaminophen (Acetaminophen Extra Strength) 1,000 mg PO QID PRN atorvastatin 10 mg PO DAILY budesonide-formoterol 80-4.5 mcg/actuation (Symbicort) 2 puffs inhalation BID celecoxib (Celebrex) 200 mg (2 x 100 mg) PO BID PRN 30 days gabapentin 400 mg PO BEDTIME levothyroxine 175 mcg PO DAILY omeprazole 20 mg PO DAILY walker Folding Front wheeled walker HPI Comments Details: Ms Rodríguez presents to the office today for preop visit. She is scheduled for left total hip arthroplasty with Dr. Sin. She continues to have ongoing pain and difficulty with ambulation in the left hip, which is affecting her quality of life; therefore, she has elected to move forward with surgery. She is on chronic pain medication oxycodone 10mg tabs prn- oxycodone 15mg q 6 hrs--> has been on this medication for atleast 3 years [facility] Medical History (Updated 08/23/23 @ 10:20 by Crista Petty RN) Arthritis Thyroid disease GERD (gastroesophageal reflux disease) Asthma History of high cholesterol Surgical History (Updated 08/31/23 @ 11:33 by Aldo Kiser PA-C) Hx of cholecystectomy H/O colonoscopy Social History (Updated 08/31/23 @ 10:23 by Yesenia Corado) Are you a primary direct care counselor to a significant other at home: No Do you presently have visiting nurse or other home services: No Alcohol intake: current Alcohol intake frequency: does not drink Patient Tobacco Use Status: Current everyday Tobacco user Cigarettes Per Day: 2 Current occupational status: employed 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 Review of Systems Const All systems reviewed & are unremarkable except as noted in HPI and below Physical Exam Vital Signs: BMI result Body Mass Index 34.2 Const General: cooperative and no acute distress Orientation/consciousness: patient oriented x3 HEENT Head: Yes normal to inspection, Yes normocephalic and Yes atraumatic Eyes General: appearance normal, both eyes and all related structures Neck Neck: Yes normal visual inspection and Yes no lymphadenopathy Resp Effort & Inspection: normal respiratory effort and able to speak in complete sentences Cardio Rate: regular rate Peripheral pulses: Peripheral pulses 2+ throughout GI Inspection: Yes normal to inspection Palpation (GI): Soft to palpation Skin General skin exam: no rashes or lesions noted Neuro General: patient oriented x3 Extrem Other: Left hip: Normal to inspection. No ecchymosis, erythema, or edema. Full hip ROM in all planes. No tenderness to palpation over the greater trochanteric bursa. 3/5 strength with resisted hip flexion, knee extension, abduction, and abduction. Slightly limited internal and external rotation due to groin pain. Able to perform straight leg raise. NVI. Psych Appearance: grossly normal Mental Status: mental status grossly normal Results Reviewed Results Reviewed: Xrays were obtained in the office today and personally reviewed by me of the left hip show degenerative changes of the femoral head Assessment & Plan Assessment & Plan (1) Status post total left knee replacement: Code(s): Z96.652 - Presence of left artificial knee joint Category: Surgical Plan I discussed in detail the procedure and what to expect pre and post operatively. We discussed the risks, benefits and alternatives to the surgery as well as the rehabilitation course. The risks; which include, but are not limited to infection, bleeding, nerve injury, ongoing pain, swelling, and stiffness, perioperative risk of injury to bones and soft tissues, and blood clots. I?ve answered all questions and with their understanding they have consented to move forward with Left total hip arthroplasty with Dr. Sin An order for PT was sent to [facility] We discussed post op pain mgmnt and since she has chronic opiate rx with her PCP, she will not require post op pain medication through our office on discharge Orders: Orders XR hip LT min 2V Today M25.552 - Pain in left hip XR shoulder RT min 2V Today M25.511 - Pain in right shoulder PT Evaluation and Treatment Today Z96.652 - Presence of left artificial knee joint Patient Instructions: Scribed for Ta-Izabella Kiser PA-C, by candice Weiss scribe, on 08/31/2023 at 10:15 AM EST.? I, Aldo Kiser PA-C, have personally reviewed and agree with the information entered by the scribe. Coding Level of Care Code Est Pt Level 3 (90151) Diagnoses Status post total left knee replacement Z96.652
== END 2023-08-31 12:37 | disposition home or self-care (01) ==
LOC: HO.HOS 10:01
PROVIDERS: PCP Internal Medicine; Visit Provider Physician Assistant
DX: Z96.642 Presence of left artificial hip joint (principal)
CPT/HCPCS: 99024

== ENCOUNTER 2023-09-04 07:49 | Inpatient (IN) | payer OTHER, SELFPAY ==
--- NOTE | 2023-08-23 | ECG_ITS ---
Test Reason : preop Blood Pressure : / mmHG Vent. Rate : 061 BPM Atrial Rate : 061 BPM P-R Int : 148 ms QRS Dur : 080 ms QT Int : 420 ms P-R-T Axes : 069 030 030 degrees QTc Int : 422 ms Normal sinus rhythm Normal ECG No previous ECGs available Referred By: Amaya Kessler Electronically Signed By:CARLOZ DENISE MD
[2023-08-23 10:33] VITALS: BMI 36.6
[2023-08-23 10:38] VITALS: BP 124/57; PULSE 72; RESP 18; O2SAT 96
--- NOTE | 2023-08-23 10:55 | HO.ANESPROP2 ---
Documented by User: Amaya Kessler NP 09/03/23 09:49 HPI - Anesthesia Eval Consult details Narrative: 57yo F for Left Hip Total Replacement, 09/04/23 Medically optimized per PCP No recent illness No CP / SOB with activity limited d/t hip pain Asthma: Stable. No rescue inhaler use recently GERD: controlled with ppi PMFSH Active Problems Active Problems: All Active Problems Osteoarthritis of left knee (Acute) Osteoarthritis of right knee (Acute) Contusion of right tibia (Acute) Osteoarthritis of left hip (Acute) Past Medical History Medical History Arthritis Thyroid disease GERD (gastroesophageal reflux disease) Asthma History of high cholesterol Family History Family history of problems with anesthesia: No Surgical History Surgical History Hx of cholecystectomy H/O colonoscopy History of Problems with Anesthesia: No Social History Social History Are you a primary nurse behavioral health care to a significant other at home: No Do you presently have visiting nurse or other home services: No Alcohol intake: current Alcohol intake frequency: does not drink Patient Tobacco Use Status: Current everyday Tobacco user Cigarettes Per Day: 2 Use of substances other than those prescribed or required for medical reasons: No Have you been hit, kicked, punched, or otherwise hurt by someone within the past year? 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 Allergies Allergy/AdvReac Type Severity Reaction Status Date / Time Penicillins Allergy Severe Hypotension Verified 09/04/23 07:38 Home Medications ?Medication ?Instructions ?Recorded ?Confirmed ?Last Taken ?Type atorvastatin 10 mg tablet 10 mg PO DAILY 04/04/22 09/04/23 09/04/23 History budesonide-formoterol HFA 80 2 puff inhalation BID 04/04/22 09/04/23 09/04/23 History mcg-4.5 mcg/actuation aerosol inhaler (Symbicort) omeprazole 20 mg capsule,delayed 20 mg PO DAILY 04/04/22 09/04/23 09/04/23 History release gabapentin 400 mg capsule 400 mg PO BEDTIME 09/14/22 09/04/23 08/28/23 History acetaminophen 500 mg tablet 1,000 mg PO QID PRN Pain 08/23/23 09/04/23 09/03/23 History (Acetaminophen Extra Strength) levothyroxine 175 mcg tablet 175 mcg PO DAILY 08/23/23 09/04/23 09/04/23 History oxycodone 15 mg tablet 15 mg PO QID PRN Pain 09/04/23 09/04/23 09/04/23 06:00 History Exam Height,Weight and Vital Signs: Height 5 ft 8 in Weight 109.316 kg Last Vital Signs Pulse 72 08/23/23 10:38 Resp 18 08/23/23 10:38 BP 124/57 L 08/23/23 10:38 Pulse Ox 96 08/23/23 10:38 O2 Del Method Room Air 08/23/23 10:38 Airway Mallampati Class: III TM Dist: >3cm Neck ROM: Full Denture: Upper and Lower Heart: RRR Lungs: CTAB Assessment and Plan Assessment Anesthesia Assessment: Anesthesia Plan Discussed and PAT Visit Final Anesthetic Review Family History of Problems with Anesthesia: No History of Problems with Anesthesia: No Documented by User: Cindy Fan MD 09/04/23 09:05 [facility] Past Medical History Medical History Arthritis Thyroid disease GERD (gastroesophageal reflux disease) Asthma History of high cholesterol Surgical History Surgical History Hx of cholecystectomy H/O colonoscopy Social History Social History Are you a primary nurse behavioral health care to a significant other at home: No Do you presently have visiting nurse or other home services: No Alcohol intake: current Alcohol intake frequency: does not drink Patient Tobacco Use Status: Current everyday Tobacco user Cigarettes Per Day: 2 Use of substances other than those prescribed or required for medical reasons: No Have you been hit, kicked, punched, or otherwise hurt by someone within the past year? 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 Allergies Allergy/AdvReac Type Severity Reaction Status Date / Time Penicillins Allergy Severe Hypotension Verified 09/04/23 07:38 Home Medications ?Medication ?Instructions ?Recorded ?Confirmed ?Last Taken ?Type atorvastatin 10 mg tablet 10 mg PO DAILY 04/04/22 09/04/23 09/04/23 History budesonide-formoterol HFA 80 2 puff inhalation BID 04/04/22 09/04/23 09/04/23 History mcg-4.5 mcg/actuation aerosol inhaler (Symbicort) omeprazole 20 mg capsule,delayed 20 mg PO DAILY 04/04/22 09/04/23 09/04/23 History release gabapentin 400 mg capsule 400 mg PO BEDTIME 09/14/22 09/04/23 08/28/23 History acetaminophen 500 mg tablet 1,000 mg PO QID PRN Pain 08/23/23 09/04/23 09/03/23 History (Acetaminophen Extra Strength) levothyroxine 175 mcg tablet 175 mcg PO DAILY 08/23/23 09/04/23 09/04/23 History oxycodone 15 mg tablet 15 mg PO QID PRN Pain 09/04/23 09/04/23 09/04/23 06:00 History Exam Airway Mallampati Class: II (edentulous) Loose/Missing/Broken Teeth: Yes, Upper and Lower Assessment and Plan Assessment Anesthesia Assessment: Chart Reviewed Final Anesthetic Review NPO: Yes ASA Class: II Final Preanesthetic Review: Meds/Allgs Chart Reviewed, Consent Obtained/Reviewed and Anes Risks/Benef Reviewed Patient Risk: Low Procedure Risk: Intermediate Anesthetic Plan Anesthetic Plan: GA Disposition: Standard PACU
[2023-08-23 12:06] LABS: Hematocrit 36.4 % (37.0-47.0); Mean Platelet Volume 10.9 fL (9.4-12.3); Platelet Count 238 X10*3/uL (160-400); Red Blood Count 3.64 X10*6/uL (4.20-5.50); Red Cell Distribution Width 14.7 % (11.0-16.0); White Blood Count 8.1 X10*3/uL (4.8-10.8)
[2023-08-23 12:35] LABS: Anion Gap 12 (12-20); Blood Urea Nitrogen 15 mg/dL (9-16); Calcium 9.4 mg/dL (8.4-10.2); Carbon Dioxide 29 mmol/L (22-29); Chloride 105 mmol/L (96-108); Creatinine Clr Calc Pharmacy 82.3; Estimated Glomerular Filt Rate 58; Glucose Random 87 mg/dL (60-115); Potassium 3.9 mmol/L (3.3-5.1); Sodium 142 mmol/L (135-145)
[2023-08-23 12:49] LABS: MRSA Nasal PCR NEGATIVE (Negative); SA Nasal PCR POSITIVE (Negative)
[2023-09-04] VITALS (18 sets, daily range): BP systolic 102–157; BP diastolic 47–81; PULSE 60–81; RESP 16–22; TEMP 36.1–36.9; O2SAT 94–100; BMI 34.9
--- NOTE | ~2023-09-04 | XR_ITS ---
EXAMINATION: XR PELVIS CLINICAL INFORMATION: Left total hip replacement COMPARISON: 08/31/2023 TECHNIQUE: AP view of the pelvis. FINDINGS: Upper pelvis is not included. Visualized pelvis is intact. Mild right hip joint narrowing. Left total hip replacement has been performed, prosthetic components appear appropriate position. Alignment is satisfactory. Calcification upper inner right thigh. XR/XR pelvis 1-2V IMPRESSION: Left total hip replacement.
--- NOTE | 2023-09-04 08:10 | PC.NURSE ---
Addendum entered by Marybeth Gore 09/04/23 08:20: Patient explained that her father had a horrible reaction to Vancomycin (kidney failure). Patient very concerned about this. Dr. Sin made aware. Preop antibiotics changed to Clindamycin 900mg IV. Original Note: Preop Vancomycin dose of 1500mg IV verified with Ramsey from pharmacy.
[2023-09-04] MEDS: Lactated Ringers 1,000 ML 100 ML IVCONT (08:17)
[2023-09-04] MEDS: oxyCODONE HCl ER 10 MG TAB.ER.12H PO ×2 (08:26→20:50)
--- NOTE | 2023-09-04 08:40 | PC.NURSE ---
Patient took 15mg Oxycodone PO this AM 0600 at home. Patient normally takes this med everyday. Per Dr. Fan, Okay to still give PO preop Oxycontin 10mg that is ordered.
--- NOTE | 2023-09-04 09:09 | MHC.SHP ---
Pre-Procedural Eval Section A - 24 Hr Update-Section A only Date of Service: 09/04/23 The patient is an INPATIENT: No Changes since office visit: No Cold of Flu in the past 2 weeks, No New Medical Problems, No Changes in Medication and No Patient answered all questions The patient has been examined within 24 hours of the surgical procedure. The History & Physical has been completed within 30 days and I have reviewed it.: Yes Section B - Complete if H&P > 30 days Chief Complaint: LT LEYDA Allergies: Allergies Allergy/AdvReac Type Severity Reaction Status Date / Time Penicillins Allergy Severe Hypotension Verified 09/04/23 07:38 Plan I have reviewed the history and physical and performed a pertinent physical examination on my patient. No changes have occurred unless specified. Time Spent With Patient Time: Total time managing care of this patient today ____ minutes.
--- NOTE | 2023-09-04 10:50 | PM.OP ---
Brief Operative Note Date of Service: 09/04/23 Pre-op diagnosis: Left hip OA Post-op diagnosis: same Procedure: Left LEYDA Implants: Diller Trident2 52/20 deg Jeannine Accolade2 132 #5 ceramic Surgeon: Kenny Sin MD Anesthesia: GETA and local Was an Product Development Chemist used for this Procedure?: No Product Development Chemist: Aldo Kiser Estimated blood loss (mL): 200 IV fluids (mL): 1,000 Pathology: other Condition: stable Disposition: PACU Assessment and Plan (No Qualifiers) Assessment and Plan (1) Status post left hip replacement: Status: Acute Plan: Lovenox WBAT
[2023-09-04] MEDS: fentaNYL citrate/PF 100 MCG/2 ML VIAL 25 MCG IVPUSH ×4 (11:12→11:27)
[2023-09-04] MEDS: HYDROmorphone HCl 0.5 MG/0.5 ML SYRINGE 0.25 MG IVPUSH ×2 (11:32→11:42)
[2023-09-04] MEDS: Clindamycin Phosphate/D5W 900 MG/50 ML PIGGYBACK 50 MG IV (16:27)
--- NOTE | 2023-09-04 17:46 | PHA.MEDREC ---
Pharmacy Consult ? Medication Reconciliation Pharmacy has completed the medication reconciliation. Spoke to patient to confirm med list.
[2023-09-04] MEDS: HYDROmorphone HCl 0.5 MG/0.5 ML SYRINGE IVPUSH (19:17)
[2023-09-04] MEDS: Celecoxib 200 MG CAPSULE PO (20:49)
[2023-09-04] MEDS: Gabapentin 400 MG CAPSULE PO (20:49)
[2023-09-04] MEDS: 0.9 % Sodium Chloride Flush 3 ML SYRINGE IVFLUSH (20:52)
[2023-09-05 03:22] VITALS: BP 130/62; PULSE 68; RESP 16; TEMP 36.1; O2SAT 98
[2023-09-05] MEDS: Levothyroxine Sodium 175 MCG TABLET PO (05:49)
[2023-09-05] MEDS: oxyCODONE HCl Immed Release 5 MG TABLET 10 MG PO ×2 (05:52→11:15)
[2023-09-05] MEDS: Acetaminophen 325 MG TABLET 650 MG PO (05:52)
[2023-09-05 05:55] LABS: MANUAL DIFF FLAG NO
[2023-09-05 05:59] LABS: Basophils Percent Auto 0.1 % (0-2); Eosinophils Percent Auto 0.1 % (0-4); Hematocrit 31.3 % (37.0-47.0); Hemoglobin 10.2 g/dl (12.0-16.0); Imm Gran Abs Auto 0.06 X10*3/uL (0.00-0.03); Imm Gran Pct Auto 0.6 % (0.0-0.4); Lymphocytes Absolute Auto 1.3 X10*3/uL (1.2-4.9); Lymphocytes Percent Auto 12.6 % (20-40); Mean Corpuscular HGB Conc 32.6 g/dl (31.0-35.0); Mean Corpuscular Hemoglobin 32.7 pg (27.0-33.0); Mean Corpuscular Volume 100.3 fL (80.0-98.0); Mean Platelet Volume 10.6 fL (9.4-12.3); Monocytes Absolute Auto 1.1 X10*3/uL (0.1-1.2); Monocytes Percent Auto 10.7 % (2-11); Neutrophils Absolute Auto 7.7 x10*3/uL (2.0-8.3); Neutrophils Percent Auto 75.9 % (45-73); Platelet Count 208 X10*3/uL (160-400); Red Blood Count 3.12 X10*6/uL (4.20-5.50); White Blood Count 10.1 X10*3/uL (4.8-10.8)
[2023-09-05 06:19] LABS: Anion Gap 13 (12-20); Blood Urea Nitrogen 20 mg/dL (9-16); Calcium 8.9 mg/dL (8.4-10.2); Carbon Dioxide 27 mmol/L (22-29); Chloride 106 mmol/L (96-108); Creatinine Clr Calc Pharmacy 94.4; Estimated Glomerular Filt Rate > 60; Glucose Fasting 112 mg/dL (60-99); Potassium 3.7 mmol/L (3.3-5.1); Sodium 142 mmol/L (135-145)
--- NOTE | 2023-09-05 06:29 | P.F2F_ITS ---
Service Date Service Date: 09/05/23 Encounter Date of encounter: 09/05/23 Reasons for Services Signs and symptoms assessed: Weakness, poor balance, poor gait mechanics Reason for physical therapy: home safety and mobility, therapeutic exercises, restore joint function, gait/transfer training, ADL training and energy conservation Reason for occupational therapy: home safety and mobility, therapeutic exercises, restore joint function, gait/transfer training, ADL training and energy conservation Homebound: Leaving the home is medically contraindicated at this time without the asist of a device and/or another person due th the listed conditions above and below. Reason homebound: unsteady gait / fall risk, pain with ambulation, poor balance / fall risk and unable to drive Certification: Based on the above findings, I certify that this patient is confined to the home and needs intermittent [facility] care, physical therapy and/or speech therapy, or continues to need occupational therapy. The patient is under my care, and I have initiated the establishment of the plan of care. The patient will be followed by a physician who will periodically review the plan of care. Time Spent With Patient Time: Total time managing care of this patient today ____ minutes.
--- NOTE | 2023-09-05 06:29 | PM.DS ---
DS: Providers Provider Date of Service: 09/05/23 <Aldo Kiser PA-C - Last Filed: 09/05/23 06:30> Date of admission: 09/04/23 07:49 <BEATA Gaines Last Filed: 09/05/23 06:30> Primary care physician: Kashif Melton MD <Aldo Kiser PA-C - Last Filed: 09/05/23 06:30> DS: Diagnosis Discharge Diagnosis (1) Status post left hip replacement: Status: Acute <BEATA Gaines Last Filed: 09/05/23 06:30> DS: Summary Hospital Course Hospital Course: The patient underwent a successful left total hip arthroplasty on 09/04/[address] Sin, was transferred to PACU and then to the floor to recover. During their stay, their vitals were stable, afebrile at 96.9. Labs were unremarkable, H/H 10.2/31.3. POD 1 he was started on ASA 325mg tabs po twice a day for DVT ppx, they also received Physical Therapy services twice a day. Physical therapy should include gait training, core and lumbar strength, glute strength. Posterior precautions intact. WBAT. Prior to discharge, her dressing was changed, incision clean dry and intact, new Aquacel dressing applied. The Aquacel dressing should remain intact and dry at all times. Any concerns with the dressing, please contact orthopedic office. No showering. The plan is to be discharged <Aldo Kiser PA-C - Last Filed: 09/05/23 06:30> Time Attestation Discharge Coordination Time (in mins): 30 <Gayatri Cardoso PA-C - Last Filed: 09/05/23 07:36> Quality: Safe Use of Opioids Does Pt have an Active Cancer Diagnosis on the Problem List?: No <Gayatri Cardoso PA-C - Last Filed: 09/05/23 07:36> Quality: Stroke Does the patient have a stroke diagnosis?: No <Gayatri Cardoso PA-C - Last Filed: 09/05/23 07:36> Physical Exam Vital Signs: Vital Signs: Last Vital Signs Temp 96.9 F 09/05/23 03:22 Pulse 68 09/05/23 03:22 Resp 16 09/05/23 03:22 BP 130/62 09/05/23 03:22 Pulse Ox 98 09/05/23 03:22 O2 Del Method Room Air 09/05/23 03:22 O2 Flow Rate 6 09/04/23 11:07 BMI result Body Mass Index 34.9 <BEATA Gaines Last Filed: 09/05/23 06:30> Extrem: Other: Left hip dressing is c/d/i. Able to dorsi/plantar flex. Calf is supple and nontender. Sensation intact. Pedal pulse intact. <BEATA Dahl Last Filed: 09/05/23 07:36> DS: Data Data Completed and Pending Pending studies at discharge: Pending at discharge 09/04/23 10:36 Surgical [PTH] Routine <BEATA Gaines Last Filed: 09/05/23 06:30> Labs on day of discharge: Laboratory Results - last 24 hr 09/05/23 05:22 WBC 10.1 RBC 3.12 L Hgb 10.2 L Hct 31.3 L MCV 100.3 H MCH 32.7 MCHC 32.6 RDW 15.0 Plt Count 208 MPV 10.6 Immature Gran % (Auto) 0.6 H Neut % (Auto) 75.9 H Lymph % (Auto) 12.6 L [place] % (Auto) 10.7 Eos % (Auto) 0.1 Baso % (Auto) 0.1 Lymph # (Auto) 1.3 [place] # (Auto) 1.1 Eos # (Auto) 0.0 Baso # (Auto) 0.0 Abs Immat Gran (auto) 0.06 H Absolute Neuts (auto) 7.7 Absolute Nucleated RBC 0.000 Nucleated RBC % (auto) 0.0 Sodium 142 Potassium 3.7 Chloride 106 Carbon Dioxide 27 Anion Gap 13 BUN 20 H Creatinine 0.85 Estim Creat Clear Calc 94.4 Estimated GFR > 60 Fasting Glucose 112 H Calcium 8.9 <BEATA Gaines Last Filed: 09/05/23 06:30> Discharge Plan Discharge Anticipated Discharge Date/Time: 09/05/23 11:00 <Aldo Kiser PA-C - Last Filed: 09/05/23 06:30> Patient Disposition: Home Health Service <Aldo Kiser PA-C - Last Filed: 09/05/23 06:30> Discharge Diagnosis: LT LEYDA <Aldo Kiser PA-C - Last Filed: 09/05/23 06:30> LT LEYDA <Gayatri Cardoso PA-C - Last Filed: 09/05/23 07:36> Referrals: Aldo Kiser PA-C [Physician Carton Forming Machine Adjuster] - 2 Weeks (09/20/23 12:30 [facility] Orthopedic Surgeons Aldo Kiser PA-C) <Aldo Kiser PA-C - Last Filed: 09/05/23 06:30> Discharge Medications: New acetaminophen 325 mg Tablet 650 mg PO Q6H PRN (Reason: Pain, Mild (Pain Scale 1-3), fever or headache) 30 Days Qty: 240 0RF aspirin 325 mg Tablet 325 mg PO BID 42 Days Qty: 84 0RF Continued (DME) walker [facility] See Rx Instructions .MEDSUPPLY Qty: 1 0RF Rx Instructions: Folding Front wheeled walker celecoxib [Celebrex] 100 mg capsule 200 mg PO BID PRN (Reason: pain) 30 Days Qty: 60 0RF levothyroxine 175 mcg tablet 175 mcg PO DAILY@0600 oxycodone 15 mg tablet 15 mg PO Q6H PRN (Reason: Pain) omeprazole 20 mg capsule,delayed release(DR/EC) 20 mg PO DAILY atorvastatin 10 mg tablet 10 mg PO DAILY budesonide-formoterol [Symbicort] 80-4.5 mcg/actuation HFA aerosol inhaler 2 puff inhalation BID gabapentin 400 mg capsule 400 mg PO BEDTIME Discontinued acetaminophen [Acetaminophen Extra Strength] 500 mg Tablet 1,000 mg PO QID PRN (Reason: Pain) <Aldo Kiser PA-C - Last Filed: 09/05/23 06:30> Discharge Orders: Discharge Order (Routine); Ordered 09/05/23 Ordered By: Gayatri Cardoso <Aldo Kiser PA-C - Last Filed: 09/05/23 06:30> Diet: Regular diet <BEATA Gaines Filed: 09/05/23 06:30> Regular diet <BEATA Dahl Last Filed: 09/05/23 07:36> Activity on Discharge: Use cane or walker <BEATA Gaines Last Filed: 09/05/23 06:30> Use cane or walker <BEATA Dahl Last Filed: 09/05/23 07:36> Stand Alone Forms: Patient Portal Discharge page <BEATA Gaines Filed: 09/05/23 06:30> Print Language: Gambian <BEATA Gaines Filed: 09/05/23 06:30> Care Plan Goals: Restore function of joint <BEATA Gaines Filed: 09/05/23 06:30> Health Concerns: none <BEATA Gaines Last Filed: 09/05/23 06:30> Plan of Treatment: Physical Therapy for Total hip arthroplasty: wbat, posterior precautions, gait training, ROM, strength Limit stair climbing No showering, no tub bath-keep dressing clean, dry and intact No driving x6 weeks Continue Aspirin twice a day x 6 weeks Follow up with [facility] Orthopedics in 2 weeks: <BEATA Gaines Filed: 09/05/23 06:30> Assessment: Physical Therapy Pain management DVT prophylaxis <BEATA Gaines Filed: 09/05/23 06:30>
[2023-09-05 07:09] VITALS: BP 94/52; PULSE 70; RESP 18; TEMP 36.6; O2SAT 98
[2023-09-05 07:36] VITALS: BP 94/52; PULSE 70; O2SAT 98
[2023-09-05] MEDS: Fluticasone/Vilanterol 100/25 BLST.W.DEV 1 PUFF INHALE (07:50)
[2023-09-05 07:51] VITALS: PULSE 78; RESP 18; O2SAT 98
[2023-09-05] MEDS: oxyCODONE HCl ER 10 MG TAB.ER.12H PO (07:58)
[2023-09-05] MEDS: Celecoxib 200 MG CAPSULE PO (07:59)
[2023-09-05] MEDS: 0.9 % Sodium Chloride Flush 3 ML SYRINGE IVFLUSH (07:59)
--- NOTE | 2023-09-05 08:38 | HO.POSTANES ---
Post Anesthesia Evaluation Post Anesthesia Evaluation Date of Service: 09/05/23 Vital Signs: Vital Signs Temp Pulse Resp BP Pulse Ox O2 Del Method 09/05/23 07:51 78 18 09/05/23 07:36 70 94/52 L 98 09/05/23 07:09 98 F 70 18 94/52 L 98 Room Air 09/05/23 03:22 96.9 F 68 16 130/62 98 Room Air Anesthesia: General Endotracheal-GETA Mental Status: Awake Pain Control: Satisfactory Nausea/Vomiting: None Hydration: Adequate Anesthesia-Related Issues: No Anes. Related Issues
--- NOTE | 2023-09-05 10:02 | MHC.CM.PN ---
PT REPORTS SHE LIVES AT HOME WITH HER SON AND IS INDEPENDENT WITH CARE SHE HAS NO DME OR SERVICES AT [facility] PT DECLINES TO COMPLETE A HCP PCP: IGOR RAMIREZ PT WILL DC HOME TODAY WITH [facility] FAM[facility] TO TRANSPORT
[2023-09-05] MEDS: Aspirin 325 MG TABLET PO (10:58)
--- NOTE | 2023-09-12 07:19 | W.PM.OPN ---
Operative Note Operative Note Date of Service: 09/04/23 Narrative: Date of Service: 09/04/23 Pre-op diagnosis: Left hip OA Post-op diagnosis: same Procedure: Left LEYDA Implants: [place] Trident2 52/20 deg Jeannine Accolade2 132 #5 ceramic Surgeon: Kenny Sin MD Anesthesia: GETA and local Was an Inspector Packager used for this Procedure?: No Inspector Packager: Aldo Kiser Estimated blood loss (mL): 200 IV fluids (mL): 1,000 Pathology: other Condition: stable Disposition: PACU Patient was brought into the operating room and placed in the right lateral decubitus position. All bony prominences were well padded and the limb was prepped and draped in standard sterile fashion. A time-out was called to identify proper site procedure proper surgeon IV antibiotics and 1 g of tranexamic acid were administered. I began by making a curvilinear incision over the posterolateral aspect of the greater trochanter. Dissection was taken down to the tensor fascia which was incised in line with the incision and a Charnley retractor was placed. Cautery was used to maintain hemostasis. The hip was internally rotated and the external rotators were identified. The vessels were cauterized and a full-thickness capsular/external rotator layer was developed starting just proximal to the piriformis. This layer was tagged and a dull Hohmann retractor was placed underneath the neck in the hip was dislocated. A neck cut was made 1 cm proximal to the lesser trochanter and the head and neck were removed and measured 46-48mm on the back table. The head was deformed and eburnated. I then removed the labrum and cauterized the fovea. I started with a 44 reamer and medialized to the inner table. I sequentially reamed up to a size 52 and impacted a 52mm cup at 45 degrees of inclination and 25 degrees of version. I then placed a 20 deg posterior lipped liner and turned my attention to the femur. I identified the piriformis insertion and used this as a starting point for my olga lidia cutter. The medius tendon was protected with a Hibs retractor. A Charnley awl was inserted in the canal and a curved curette used to remove the lateral bone. I irrigated copiously. I then sequentially broached in the patient's natural version to a size 4 and placed my trial implants. I used a #5/132/+5 based on my pre-operative template. I removed all instrumentation and copiously irrigated. I placed my final femoral implant and again took the hip through range of motion and was satisfied with the stability and length. The final +5 implant was impacted in place and the hip reduced. I then irrigated copiously and placed 1 g of local tranexamic acid. I performed a capsular closure with 2.0 fiberwire, Luke's fascia with 0 Vicryl, subcuticular with 2-0 Vicryl and the skin with zaki. Patient was placed into a sterile dressing. Patient was extubated brought to the recovery room in stable condition. There were no known complications.
== END 2023-09-05 13:08 | disposition home health service (06) | DRG 324 ==
LOC: HO.SSSA 11:45 → HO.S3 15:27
PROVIDERS: Nurse Practitioner; Orthopaedic Surgery; Admitting Provider Physician Assistant; PCP Internal Medicine; Visit Provider Physician Assistant
PROC: 0SRB039 Replacement of Left Hip Joint with Ceramic Synthetic Substitute, Cemented, Open Approach (ICD-10-PCS; CPT 27130; principal; 2023-09-04 09:50)
DX: M16.12 Unilateral primary osteoarthritis, left hip (principal); F17.210 Nicotine dependence, cigarettes, uncomplicated; Z71.6 Tobacco abuse counseling; Z79.82 Long term (current) use of aspirin; Z79.890 Hormone replacement therapy; Z79.899 Other long term (current) drug therapy
CPT/HCPCS: 27130; 36415; 72170; 80048; 85025; 85027; 86850; 86900; 86901; 87640; 87641; 88304; 88311; 93005; 94640; 97162; 97166; C1776; J0131; J0736; J1100; J1170; J1920; J2250; J2405; J2704; J2795; J3010

== ENCOUNTER → 2023-09-04 07:49 | Outpatient (BNV) | payer OTHER, SELFPAY | PROVIDERS: Admitting Provider Physician Assistant; PCP Internal Medicine; Visit Provider Orthopaedic Surgery | DX: Z47.1 Aftercare following joint replacement surgery (principal); Z96.642 Presence of left artificial hip joint | CPT/HCPCS: 27130; 99024; G0180 ==

== ENCOUNTER 2023-09-20 12:18 | Outpatient (AMB) | payer OTHER, SELFPAY ==
--- NOTE | 2023-09-20 12:34 | MHC.OFFVIS ---
Intake Visit Reasons: 2WK PO: L LEYDA w/NE 09/04/23 Intake Note: Crista a 57 year old female who presents today for a post operative visit s/p left LEYDA on 09/04/23 NE. Patient reports she is doing well, states no concerns today. Allergies Penicillins Allergy (Severe, Verified 09/20/23 12:42) Hypotension Medication List - Last Reconciled 09/20/23 by Aldo Kiser PA-C acetaminophen 650 mg (2 x 325 mg) PO Q6H PRN 30 days aspirin 325 mg PO BID 42 days atorvastatin 10 mg PO DAILY budesonide-formoterol 80-4.5 mcg/actuation (Symbicort) 2 puffs inhalation BID celecoxib (Celebrex) 200 mg (2 x 100 mg) PO BID PRN 30 days gabapentin 400 mg PO BEDTIME levothyroxine 175 mcg PO DAILY@0600 omeprazole 20 mg PO DAILY oxycodone 15 mg PO Q6H PRN walker Folding Front wheeled walker HPI HPI 2WK PO: L LEYDA w/NE 09/04/23: Details: Crista is a 57-year-old female who presents today for 2 week postoperative left LEYDA with NE on 09/04/2023. She reports she is doing well post surgery. She denies any concerns today. She states that she will begin her outpatient therapy tomorrow. She has been compliant with the medications. [facility] Medical History Arthritis Thyroid disease GERD (gastroesophageal reflux disease) Asthma History of high cholesterol Surgical History Hx of cholecystectomy H/O colonoscopy Social History Household Members: Family Housing: House Are you a primary child adolescent care to a significant other at home: No Do you presently have visiting nurse or other home services: No Alcohol intake: current Alcohol intake frequency: does not drink Patient Tobacco Use Status: Current everyday Tobacco user Tobacco use type: Cigarette Cigarettes Per Day: 2 service: No Current occupational status: employed 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 Review of Systems Const All systems reviewed & are unremarkable except as noted in HPI and below Physical Exam Vital Signs: Last Vital Signs Temp 96.9 F 09/05/23 03:22 Pulse 68 09/05/23 03:22 Resp 16 09/05/23 03:22 BP 130/62 09/05/23 03:22 Pulse Ox 98 09/05/23 03:22 O2 Del Method Room Air 09/05/23 03:22 O2 Flow Rate 6 09/04/23 11:07 BMI result Body Mass Index 34.9 Const General: cooperative, healthy appearing, comfortable and no acute distress Orientation/consciousness: patient oriented x3 Neck Neck: Yes normal visual inspection and Yes no JVD Chest Chest palpation & inspection: normal inspection of the chest Resp Effort & Inspection: normal respiratory effort Auscultation: clear to auscultation bilaterally, crackles (no), rales (no), rhonchi (no) and wheezes (no) Cardio Jugular venous distension: no JVD Rate: regular rate Rhythm: regular rhythm Heart sounds: S1 normal heart sound present, S2 normal heart sound present, Murmur heart sound present (no) and Rub heart sound present (no) Neuro General: patient oriented x3 Extrem Other: Left hip: Incision is clean, dry and intact. No erythema or drainage. No pain with range of motion or hip flexion. NVI. General: Yes normal to inspection, Yes no pedal edema and Yes no calf tenderness Psych Appearance: grossly normal Mental Status: mental status grossly normal Speech and movement: Normal speech and movement present Assessment & Plan Assessment & Plan (1) Status post left hip replacement: Code(s): Z96.642 - Presence of left artificial hip joint Category: Surgical Plan Melinda removed, steri strips applied. She will begin to transition to Outpatient PT to continue working on Gait training, ROM and quad strength. No driving for another 4 weeks. She will require ppx abx for dental procedures. She will f/u in 4 weeks, sooner if needed. Patient Instructions: Scribed for Aldo Kiser PA-C, by Hernando Lee medical claims analyst, on 09/20/2023 at 12:30 PM KARL. IAldo PA-C, have personally reviewed and agree with the information entered by the scribe. Coding Level of Care Code Global (74728) Diagnoses Status post left hip replacement Z96.642
== END 2023-09-20 13:01 | disposition home or self-care (01) ==
PROVIDERS: PCP Internal Medicine; Visit Provider Physician Assistant
DX: Z96.642 Presence of left artificial hip joint (principal)
CPT/HCPCS: 99024

== ENCOUNTER → 2023-09-20 12:18 | Outpatient (BNVA) | payer OTHER, SELFPAY | PROVIDERS: PCP Internal Medicine; Visit Provider Physician Assistant ==

== ENCOUNTER 2023-10-02 14:00 | Outpatient (RCR) | payer OTHER, SELFPAY ==
--- NOTE | 2023-09-21 11:53 | MHC.PT.EP ---
[facility] [place] Office [place] Office [place] Office [address] Driss Lainez [address] [phone] F: [phone] F: [phone] F: [phone] F: [phone] Physical Therapy Plan of Care Date of Evaluation: 09/21/23 Date of Surgery: 09/04/2023 Diagnosis: s/p L LEYDA 09/04/2023 Assessment: Patient is a 57 year old female presenting to PT s/p L LEYDA on 09/04/2023. She presents today with impairments in pain, ROM, hip strength, gait mechanics. 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 Clinical presentation today is most consistent with signs and sx associated with L LEYDA 09/04/2023 and pt will benefit from skilled PT 2 week x 4 weeks to address the following problems and impairments noted upon evaluation: pain, ROM, hip strength, gait mechanics. These problems limit the patient with the following functional activities: ambulating, stair negotiation, ADLs, work. The prescribed treatment plan of care is medically necessary. Co-morbidities of none were identified and taken into considerations of plan of care. Pt was educated on HEP, role of PT, prognosis, POC. Frequency and Duration: The patient will be seen 2 x week x 4 weeks Short Term Goals: Pt will demonstrate ability to sit with equal weight distribution in 1 week and minimal pain. Pt will demonstrate improved hip MMT strength by 1/3 grade in 2 weeks for improved lumbopelvic stability. Pt will demonstrate L hip AROM to 90 in supine in 2 weeks with min to no pain. Car Blocker Goals: Pt will demonstrate improved LEFI score by 9 points in 4 weeks for improved functional mobility. Pt will demonstrate ability to ambulate with normal mechanics and no AD in 4 weeks for return to PLOF. Pt will demonstrate ability to negotiate stairs step over step without railing for improved access to her home. Treatment Plan: Modalities to reduce pain, spasms and effusion. Manual therapy to restore motion and function. Therapeutic exercise to improve strength and flexibility. Neuromuscular re-education for posture and balance. Therapeutic activities to return to functional activities of daily living. Electronically signed by: Antonia Caruso, PT, DPT, ATC Please sign and return to therapist. Thank you for your referral.
--- NOTE | 2023-11-06 13:29 | MHC.PT.DC ---
[facility] [place] Office [place] Office [place] Office [address] Driss Lainez [address] [phone] F: [phone] F: [phone] F: [phone] F: [phone] Physical Therapy Discharge Report Diagnosis: s/p L LEYDA 09/04/2023 Date of Surgery: 09/04/2023 Date of Evaluation: 09/21/23 Date of Discharge: 11/06/23 Treatments to Date: 3 Cancellations to Date: 1 No Shows to Date: 2 Discharge Status: Visit Non-compliance Discharge Summary: Pt has failed to comply with [facility] attendance policy and no showed her last 2 scheduled appointments. Pt therefore to be d/c per policy. Electronically signed by: Antonia Caruso, PT, DPT, ATC Please sign and return to therapist. Thank you for your referral.
== END 2023-11-06 13:29 | disposition home or self-care (01) ==
LOC: HO.PTCHIC 14:00
PROVIDERS: PCP Internal Medicine; Visit Provider Physician Assistant
DX: Z96.642 Presence of left artificial hip joint (principal)
CPT/HCPCS: 97110; 97161

== ENCOUNTER 2023-10-11 09:34 | Outpatient (AMB) | payer OTHER, SELFPAY ==
--- NOTE | 2023-10-11 09:36 | A.OFFVIS_ITS ---
Intake Visit Reasons: 6WK PO: L LEYDA w/NE 09/04/23 Intake Note: Crista is a 58 year old female who presents today for a post operative appointment s/p Left LEYDA 09/04/23. Patient reports that she is doing well and has no concerns of the hip. Her only complaint is some stiffness and swelling of the left ankle after prolonged sitting. Allergies Penicillins Allergy (Severe, Verified 09/20/23 12:42) Hypotension HPI HPI 6WK PO: L LEYDA w/NE 09/04/23: Details: Crista is a 58 year old female who presents today for a post operative appointment s/p Left LEYDA 09/04/23. Patient reports that she is doing well and has no concerns of the hip. Her only complaint is some stiffness and swelling of the left ankle after prolonged sitting. [facility] Medical History Arthritis Thyroid disease GERD (gastroesophageal reflux disease) Asthma History of high cholesterol Surgical History Hx of cholecystectomy H/O colonoscopy Social History Household Members: Family Housing: House Are you a primary residential care facility manager to a significant other at home: No Do you presently have visiting nurse or other home services: No Alcohol intake: current Alcohol intake frequency: does not drink Patient Tobacco Use Status: Current everyday Tobacco user Tobacco use type: Cigarette Cigarettes Per Day: 2 service: No Current occupational status: employed 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 She is doing well. Continue gait training and strengthening. May discontinue ASA. Follow up 6 weeks. Coding Level of Care Code Global (23441) Diagnoses Status post left hip replacement Z96.642
== END 2023-10-11 11:30 | disposition home or self-care (01) ==
PROVIDERS: PCP Internal Medicine; Visit Provider Orthopaedic Surgery
DX: Z96.642 Presence of left artificial hip joint (principal)
CPT/HCPCS: 99024

== ENCOUNTER → 2023-10-11 09:34 | Outpatient (BNVA) | payer OTHER, SELFPAY | PROVIDERS: PCP Internal Medicine; Visit Provider Orthopaedic Surgery ==

== ENCOUNTER 2023-11-23 09:25 | Outpatient (AMB) | payer OTHER, SELFPAY ==
[2023-11-23 09:27] VITALS: BMI 33.4
--- NOTE | 2023-11-23 09:27 | A.OFFVIS_ITS ---
Vital Signs 11/23/23 09:27 Height 5 ft 8 in Weight 220 lb BMI 33.4 Intake Visit Reasons: PO - L LEYDA w/NE 09/04/23 Intake Note: Crista is a 58 year old female who presents today for a post operative appointment s/p Left LEYDA 09/04/23. Patient reports that she is feeling alright. She continues to have increased pain at night, but she also believes that she is pushing herself too hard and over doing. She takes Tylenol & Ibuprofen which does help. Allergies Penicillins Allergy (Severe, Verified 09/20/23 12:42) Hypotension HPI HPI PO - L LEYDA w/NE 09/04/23: Details: Crista is a 58 year old female who presents today for a post operative juan ointment s/p Left LEYDA 09/04/23. Carisa is doing well 3 months status post left hip LEYDA. She has some soreness at night when she 1st gets up in the morning. Her soreness is over the incision. She feels some hardness over the incision. No groin pain. [facility] Medical History Arthritis Thyroid disease GERD (gastroesophageal reflux disease) Asthma History of high cholesterol Surgical History Hx of cholecystectomy H/O colonoscopy Social History Household Members: Family Housing: House Are you a primary health care social worker to a significant other at home: No Do you presently have visiting nurse or other home services: No Alcohol intake: current Alcohol intake frequency: does not drink Patient Tobacco Use Status: Current everyday Tobacco user Tobacco use type: Cigarette Cigarettes Per Day: 2 service: No Current occupational status: employed 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 Incision is clean dry and intact There is no unusual palpation or visual changes over the incision. Assessment & Plan Assessment & Plan (1) Status post left hip replacement: Code(s): Z96.642 - Presence of left artificial hip joint Category: Surgical Plan: Three months status left hip arthroplasty doing well. Continue activity as tolerated. Follow up in 9 months. Antibiotic Vladimir for dental work discussed. Coding Level of Care Code Global (05314) Diagnoses Status post left hip replacement Z96.642
== END 2023-11-23 10:46 | disposition home or self-care (01) ==
PROVIDERS: PCP Internal Medicine; Visit Provider Orthopaedic Surgery
DX: Z96.642 Presence of left artificial hip joint (principal)
CPT/HCPCS: 99024

== ENCOUNTER → 2023-11-23 09:25 | Outpatient (BNVA) | payer OTHER, SELFPAY | PROVIDERS: PCP Internal Medicine; Visit Provider Orthopaedic Surgery ==

== ENCOUNTER 2024-05-07 08:00 | Outpatient (REF) | payer OTHER, SELFPAY ==
--- NOTE | ~2024-05-07 | MM_ITS ---
EXAMINATION: DXA BONE DENSITY AXIAL HISTORY: Estrogen deficiency TECHNIQUE: [employer] Dual energy absorptiometry (DEXA) of the lumbar spine, total right hip, and femoral neck was performed. COMPARISON: There are no prior studies for comparison. FINDINGS: The bone mineral density of the lumbar spine is 1.027 with a T-score of -1.3, and a Z-score of -1.5. The bone mineral density of the right total hip is 0.738 with a T-score of -2.1, and a Z-score of -2.2. The bone mineral density of the right femoral neck is 0.640 with a T-score of -2.9, and a Z-score of -2.5. MM/XR DEXA axial skeleton IMPRESSION: Based on bone mineral density, and according to World Health Organization (WHO) criteria, the diagnosis is consistent with osteoporosis. All bone density values are in grams per centimeter squared (g/cm2). Statistically, 68% of repeat scans fall within 1 SD (+/- 0.010 g/cm2 for AP spine L1-L4) and 1 SD (+/- 0.012 g/cm2 for femur total) FRAX is a trademark of the [employer]'s [place] [facility] Met[employer], a World Health Organization (WHO) Collaborating Center. Electronically signed by: Mark Lee MD 05/07/2024 08:45 AM EDT
--- OUTSIDE RECORDS SUMMARY | 2024-05-07 08:03 | XMS_ITS | Clinical Summary ---
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 Social History Tobacco Use Types Packs/Day Years Used Date Smoking Tobacco: Former Cigarettes 0.3 0.5 Passive Smoke Exposure: Never Smokeless Tobacco: Former Tobacco Cessation:Counseling Given: No Alcohol Use Standard Drinks/Week Comments Defer 0 (1 standard drink = 0.6 oz pur e alcohol) Comments Unknown Sex and Gender Information Value Date Recorded Sex Assigned at Female 09/05/2022 8:42 AM EDT Legal Sex Female 8:37 AM EDT Gender Identity Female 09/05/2022 8:42 AM EDT Sexual Orientation Choose not to disclose 2022 8:42 AM EDT Plan of Treatment Health Maintenance Due Date Last Done Comments CT Colonography 1967 Colonoscopy 1967 Colorectal Cancer Screening 1967 Dental Oral Exam 1967 Dental Prophylaxis 1967 Dental X-Ray: Bitewings 1967 Depression Screening 1967 FIT DNA/Cologuard 1967 FIT 1967 FOBT 1967 HIV Screening 1967 SDOH Screening 1967 Sigmoidoscopy 1967 Alcohol/Substance Use Screening 1979 Hepatitis C Screening 10/04/1985 DTaP/Tdap/Td Vaccines (1 - Tdap) 10/04/1986 Hepatitis B Vaccines (1 of 3 - 19+ 3-dose series) 10/04/1986 Pap Smear 10/04/1988 Cervical Cancer Screening 10/04/1997 HPV/Cotest 10/04/1997 Mammogram 2007 Pneumococcal Vaccine: 50+ Years (1 of 1 - PCV) 10/04/2017 Zoster Vaccines (1 of 2) 10/04/2017 Tobacco Screening 09/06/2023 09/05/2022 COVID-19 Vaccine (4 - 2023- season) 2023 03/03/2021, 06/16/2020, 05/25/2020 Influenza Vaccine (#1) 2023 , 03/03/2020, 03/11/2019, Additional history exists Dental X-Ray: Full Mouth 09/06/2025 09/05/2022 RSV Patients and Patients Aged 60 years or older (1 - 1-dose 75+ series) 10/04/2042 HIB Vaccines Aged Out No longer eligi ble based on patient's age to complete this topic HPV Vaccines Aged Out No longer eligi ble based on patient's age to complete this topic Hepatitis A Vaccines Aged Out No long er eligible based on patient's age to complete this topic IPV Vaccines Aged Out No longer eligi ble based on patient's age to complete this topic Meningococcal Vaccine Aged Out No malvin cm eligible based on patient's age to complete this topic RSV under 20 months Aged Out No longe r eligible based on patient's age to complete this topic Rotavirus Vaccines Aged Out No longer eligible based on patient's age to complete this topic Procedures Procedure Name Priority Date/Time Associated Diagnosis Comments PANORAMIC RADIOGRAPHIC IMAGE Routine 09/05/2022 11:30 AM EDT from Last 3 Months or Most Recently Relevant to Health Maintenance Insurance DENTAL - [facility] PARTIAL (MEDICAID)
--- OUTSIDE RECORDS SUMMARY | 2024-05-07 08:04 | XMS_ITS | Patient Health Record ---
Author Organization [facility] Address [address] [place] [id number] Care Team Providers Care Sales Representative Facility Services Name Role Phone Kashif Melton MD Primary Care Provider Adam Monteiro Jr Unavailable Reason For Referral No Information Medications Medication SIG (Take, Route, Fr equency, Duration) Notes Start Date End Date Status Levoxyl Active Gabapentin 02/27/2024 02/27/2024 Active MoviPrep 100 GM as directed before c olonoscopy Orally for 1 dose 05/25/2011 02/27/2024 Active oxyCODONE HCl Active Social History Tobacco Use: Social History Observation Description Date Details (start date - stop date) Current Smoker NA - NA Tobacco Use/Smoking Question Answer Notes Patient is a current smoker How often do you smoke cigarettes? every day How many cigarettes a day do you smoke? 11-20 How soon after you wake up d o you smoke your first cigarette? 31-60 minutes Are you interested in quitting? Thinking about q uitting Alcohol Screen Question Answer Notes Did you have a drink contain ing alcohol in the past year? Yes Points 3 Interpretation Positive How often did you have a dri nk containing alcohol in the past year? 2 to 3 times a week (3 points) How many drinks did you have on a typical day when you were drinking in the past year? 1 or 2 drinks (0 point) Problems Problem Type SNOMED Code ICD Code Onset Dates Problem Status W/U Status Risk Notes Problem Imaging of gastrointestinal tract abnormal (889047085) Nonspecific abnormal findings on radiological and other examination of gastrointestinal tract (793.4) Active confirmed Plan Of Treatment Future Test Test Name Order Date COLONOSCOPY 05/25/2011 Insurance Providers Payer Name Payer Address Payer Phone Subscriber Number Group Number Insured Name Patient Relationship to Insured Coverage Start Date Coverage End Date [facility] [facility] [address] [place] [phone] [id number] NATASHA LOBO Self - patient is the insured Medical (General) History Medical History History ICD Code hypothyroid pinched nerve Surgical History Surgery Date(Month/Year) cholecystectomy
== END 2024-05-07 08:01 | disposition home or self-care (01) ==
LOC: HO.MAMMO 08:00
PROVIDERS: PCP Internal Medicine; Visit Provider Internal Medicine
DX: Z12.31 Encounter for screening mammogram for malignant neoplasm of breast (principal); Z13.820 Encounter for screening for osteoporosis; Z78.0 Asymptomatic menopausal state
CPT/HCPCS: 77063; 77067; 77080

== ENCOUNTER → 2024-05-07 08:15 | Outpatient (BNV) | payer OTHER, SELFPAY | PROVIDERS: PCP Internal Medicine; Visit Provider Radiology Diagnostic Radiology | DX: E28.39 Other primary ovarian failure (principal) | CPT/HCPCS: 77080 ==

== ENCOUNTER 2024-08-04 07:24 | Outpatient (REF) | payer OTHER, SELFPAY ==
--- NOTE | ~2024-08-04 | XR_ITS ---
EXAMINATION: XR PELVIS 1-2 VIEWS, XR HIP 1 VIEW LEFT HISTORY: M25.559 - Pain in unspecified hip COMPARISON: Comparison is made with the prior examination dated 09/04/2023. FINDINGS: A single AP view of the pelvis and an additional view of the left hip are submitted. The patient is again noted to be status post left total hip arthroplasty. The orthopedic elements are in anatomic alignment. There is no radiographic evidence of loosening. There is no fracture or dislocation. There is mild narrowing of the right hip. Again seen is a soft tissue calcification of the medial right thigh. XR/XR pelvis 1-2V IMPRESSION: Status post left total hip arthroplasty. Electronically signed by: Mark Lee MD 08/04/2024 10:10 AM EDT
--- NOTE | ~2024-08-04 | XR_ITS ---
EXAMINATION: XR PELVIS 1-2 VIEWS, XR HIP 1 VIEW LEFT HISTORY: M25.559 - Pain in unspecified hip COMPARISON: Comparison is made with the prior examination dated 09/04/2023. FINDINGS: A single AP view of the pelvis and an additional view of the left hip are submitted. The patient is again noted to be status post left total hip arthroplasty. The orthopedic elements are in anatomic alignment. There is no radiographic evidence of loosening. There is no fracture or dislocation. There is mild narrowing of the right hip. Again seen is a soft tissue calcification of the medial right thigh. XR/XR hip LT 1V IMPRESSION: Status post left total hip arthroplasty. Electronically signed by: Mark Lee MD 08/04/2024 10:10 AM EDT
--- OUTSIDE RECORDS SUMMARY | 2024-08-04 07:26 | XMS_ITS | Clinical Summary ---
Author Organization [employer] Address [address] [facility] [address] [place] [address] Care Team Providers Care Teenage Babysitter Name Role Phone Unavailable Primary Care Provider [...] Screening 1967 SDOH Screening 1967 Sigmoidoscopy 1967 Disability Screening 1967 Alcohol/Substance Use Screening 1979 Hepatitis C Screening 10/04/1985 DTaP/Tdap/Td Vaccines (1 - Tdap) 10/04/1986 Hepatitis B Vaccines (1 of 3 - 19+ 3-dose series) 10/04/1986 Pap Smear 10/04/1988 Cervical Cancer Screening 10/04/1997 HPV/Cotest 10/04/1997 Mammogram 2007 Pneumococcal Vaccine: 50+ Years (1 of 1 - PCV) 10/04/2017 Zoster Vaccines (1 of 2) 10/04/2017 Tobacco Screening 09/06/2023 09/05/2022 COVID-19 Vaccine ( - season) 2023 03/03/2021, 06/16/2020, 05/25/2020 Influenza Vaccine (Season Ended) 2024 02/23/2021, 03/03/2020, 03/11/2019, Additional history exists Dental X-Ray: [...] patient's age to complete this topic Meningococcal B Vaccine Aged Out No l onger eligible based on patient's age to complete [...]
== END 2024-08-04 07:25 | disposition home or self-care (01) ==
LOC: HO.HOSX 07:24
PROVIDERS: Visit Provider Orthopaedic Surgery
DX: M25.552 Pain in left hip (principal)
CPT/HCPCS: 72170; 73501

== ENCOUNTER 2024-08-04 09:16 | Outpatient (AMB) | payer OTHER, SELFPAY ==
[2024-08-04 09:42] VITALS: BMI 33.4
--- NOTE | 2024-08-04 09:42 | A.OFFVIS_ITS ---
Vital Signs 08/04/24 09:42 Height 5 ft 8 in Weight 220 lb BMI 33.4 Intake Visit Reasons: OV- L LEYDA w/NE 09/04/23 follow up Intake Note: Crista is a 58 year old female who presents today today for a follow up of her Left Hip about one year s/p Left LEYDA 09/04/23. Patient states that the left hip is feeling great. Patient reports that about a month ago she fell on the left hip. Patient states that she did not seek treatment for the fall but states slight discomfort at random, from sitting to standing. Allergies Penicillins Allergy (Severe, Verified 08/04/24 09:44) Hypotension HPI HPI OV- L LEYDA w/NE 09/04/23 follow up: Details: Crista is a 58 year old female who presents today today for a follow up of her Left Hip about one year s/p Left LEYDA 09/04/23. Patient states that the left hip is feeling great. Patient reports that about a month ago she fell on the left hip. Patient states that she did not seek treatment for the fall but states slight discomfort at random, from sitting to standing. [facility] Medical History Arthritis Thyroid disease GERD (gastroesophageal reflux disease) Asthma History of high cholesterol Surgical History Hx of cholecystectomy H/O colonoscopy Social History Household Members: Family Housing: House Are you a primary residential care facility manager to a significant other at home: No Do you presently have visiting nurse or other home services: No Alcohol intake: current Alcohol intake frequency: does not drink Patient Tobacco Use Status: Current everyday Tobacco user Tobacco use type: Cigarette Cigarettes Per Day: 2 service: No Current occupational status: employed 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 Results Reviewed Results Reviewed: I personally reviewed relevant radiographs. Left LEYDA in expected post operative position with no hardware complications or evidence of loosening Assessment & Plan Assessment & Plan (1) Status post left hip replacement: Code(s): Z96.642 - Presence of left artificial hip joint Category: Surgical Plan: Status post left hip replacement doing very well. No intervention warranted. Discussed dental prophylaxis. She can follow up as needed. Orders: Orders XR pelvis 1-2V Today M25.559 - Pain in unspecified hip XR hip LT 1V Today M25.552 - Pain in left hip Coding Level of Care Code Est Pt Level 3 (79686) Diagnoses Status post left hip replacement Z96.642
== END 2024-08-04 10:06 | disposition home or self-care (01) ==
LOC: HO.HOS 09:17
PROVIDERS: PCP Internal Medicine; Visit Provider Orthopaedic Surgery
DX: Z47.89 Encounter for other orthopedic aftercare (principal); Z96.642 Presence of left artificial hip joint
CPT/HCPCS: 99213

== ENCOUNTER → 2024-08-04 09:18 | Outpatient (BNV) | payer OTHER, SELFPAY | PROVIDERS: Visit Provider Radiology Diagnostic Radiology | DX: Z96.642 Presence of left artificial hip joint (principal); M16.11 Unilateral primary osteoarthritis, right hip | CPT/HCPCS: 72170; 73501 ==

== ENCOUNTER 2024-09-09 15:46 | Outpatient (AMB) | payer OTHER, SELFPAY ==
--- NOTE | 2024-09-09 16:03 | A.OFFPC_ITS ---
Vital Signs 09/09/24 16:09 Height 5 ft 6.54 in Weight 234 lb BMI 37.2 BP 120/71 Respiration 16 Pulse 64 Pulse Source Pulse Oximeter Temp 98.6 F Temp Source Temporal Artery Scan Pulse Oximetry (%) 96 Oxygen Delivery Method Room Air Intake Visit Reasons: Establish Care Manager Relationship Required: No Accompanied by: Child Allergies Penicillins Allergy (Severe, Verified 09/09/24 16:51) Hypotension Medication List - Last Reconciled 09/09/24 by Awilda Villegas PA-C albuterol sulfate 90 mcg/actuation 2 inhalations inhalation Q6-8H alendronate (Fosamax) 70 mg PO QWEEK atorvastatin 10 mg PO DAILY budesonide-formoterol 80-4.5 mcg/actuation (Symbicort) 2 puffs inhalation BID gabapentin 400 mg PO BEDTIME levothyroxine 175 mcg PO DAILY@0600 naproxen 500 mg PO BID 90 days omeprazole 20 mg PO DAILY oxycodone 15 mg PO Q6H PRN Tobacco use date assessed: 09/09/24 Dental Screening Dental Screen Date: 09/09/24 Did you have a dental visit in the last 12 months?: Yes Did you have a dental problem in the last 6 months where you did not have access to dental care?: No Was dental information given to patient?: Patient has dentist (patient has dentures) HPI Establish Care HPI Details The patient is a 58-year-old female presenting for a new patient appointment and management of chronic conditions. The patient has a history of Chronic Obstructive Pulmonary Disease (COPD) for which she uses albuterol and Symbicort. She reports smoking a few cigarettes a day and is considering quitting. The patient has osteoporosis diagnosed via a DEXA scan, and she is currently on Fosamax since the beginning of the year. She is advised to take vitamin D supplements to aid bone health. The patient has hyperlipidemia managed with atorvastatin. The patient has hypothyroidism managed with levothyroxine 175 mcg daily. The patient reports a pinched nerve causing leg pain, for which she takes gabapentin and oxycodone. She describes the pain as burning and worsening at night, affecting her sleep. She is currently on oxycodone 15 mg 4 times a day although will reduce to 3 times a day for the next 30 days and possibly wean the patient down to 50 mg twice a day. Patient will continue the gabapentin 400 mg with a 60 quantity for 30 days. The patient underwent a total hip replacement last year due to severe arthritis, which significantly improved her mobility and quality of life. She uses a walker as needed for mobility. Social History - Smoking: Smokes a few cigarettes a day , considering quitting - Living situation: Lives with granddascot hter - Mobility: Uses a walker as needed PFSH Medical History (Updated 09/09/24 @ 16:59 by Awilda Villegas PA-C) Chronic pain Colon cancer screening History of mammogram (~05/07/24) Class 2 obesity with body mass index (BMI) of 37.0 to 37.9 in adult Pinched nerve Hypothyroidism Hyperlipidemia LDL goal <100 Osteoporosis (~05/07/24) COPD (chronic obstructive pulmonary disease) Establishing care with new doctor, encounter for Right hip pain Arthritis Thyroid disease GERD (gastroesophageal reflux disease) Asthma History of high cholesterol Surgical History History of total hip replacement Hx of cholecystectomy H/O colonoscopy Family History Father Cancer of blood vessel Mother Lung cancer Social History Household Members: Family Housing: House Are you a primary patient care coordinator to a significant other at home: No Do you presently have visiting nurse or other home services: No Alcohol intake: current Alcohol intake frequency: does not drink Patient Tobacco Use Status: Current everyday Tobacco user Tobacco use type: Cigarette Cigarettes Per Day: 2 service: No Current occupational status: employed Cognitive needs: No Hearing needs: No Vision needs: Yes (rx glasses) Questionnaire PHQ-9 Over the last 2 weeks, how often have you been bothered by any of the following problems? 1. Little interest or pleasure in doing things: not at all 2. Feeling down, depressed, or hopeless: not at all 3. Trouble falling or staying asleep, or sleeping too much: not at all 4. Feeling tired or having little energy: not at all 5. Poor appetite or overeating: not at all 6. Feeling bad about yourself - or that you are a failure or have let yourself or your family down: not at all 7. Trouble concentrating on things, such as reading the newspaper or watching television: not at all 8. Moving or speaking so slowly that other people could have noticed. Or the opposite - being so fidgety or restless that you have been moving around a lot more than usual: not at all 9. Thoughts that you would be better off or of hurting yourself in some way: not at all Total score: 0 Depression Screening Interpretation: Negative Depression Screening Done: Yes 89731 - PHQ-9 Billing: Yes Source: Developed by Drs. Mark Carias, Lisset Zavaleta, Naveed Fowler and colleagues, with an educational kyler from [employer]. Thrive Questionnaire Date Thrive assessed: 09/09/24 I am a: Patient What is your living situation today?: I have a steady place to live Within the past 12 months, did the food you bought not last and you didn't have the money to get more?: Never true Within the past 12 months, did you worry whether your food would run out before you got money to buy more?: Never true Do you have trouble paying for medicines?: No Do you have trouble getting transportation to medical appointments?: No Do you have trouble paying your heating and electricity bill?: No Do you have trouble taking care of your child, family member or friend?: No Do you have trouble with day-to-day activities such as bathing, preparing meals, shopping, managing finances, etc.?: No Are you currently unemployed and looking for a job?: No Are you interested in more education?: No Please select the resources that you would like help with: None THRIVE Score: 0 AUDIT C Alcohol Use Questionnaire (AUDIT-C) 1. How often do you have a drink containing alcohol?: Never 3. How often do you have six or more drinks on one occasion?: Never Total Score: 0 Score Reviewed/Action Taken: No MARK-7 AMB Questionnaire MARK-7 Date MARK - 7 assessed: 09/09/24 Feeling nervous, anxious, or on edge: 0 = Not at all Not being able to stop or control worryin = Not at all Worrying too much about different things: 0 = Not at all Trouble relaxin = Not at all Being so restless that it is hard to sit still: 0 = Not at all Becoming easily annoyed or irritable: 0 = Not at all Feeling afraid as if something awful might happen: 0 = Not at all Total MARK-7 score (0-4 normal; 5-9 mild; 10-14 moderate; 15-21 severe): 0 Source: Developed by Drs. Mark Carias, Lisset Zavaleta, Naveed Fowler and colleagues, with an educational kyler from [employer]. MARK-7 Assessment Billing MARK-7 Assessment Tool: MARK-7 Assessment 08727 Review of Systems Const Details: - Musculoskeletal: Reports leg pain due to pinched nerve, uses walker as needed - Respiratory: Reports using albuterol and Symbicort for COPD, denies acute respiratory distress - Neurological: Reports burning pain in leg, worsens at night - Endocrine: Reports taking levothyroxine for hypothyroidism Physical exam (Primary Care) Vital Signs: Last Vital Signs Temp 98.6 F 09/09/24 16:09 Pulse 64 09/09/24 16:09 Resp 16 09/09/24 16:09 BP 120/71 09/09/24 16:09 Pulse Ox 96 09/09/24 16:09 Oxygen Delivery Method Room Air 09/09/24 16:09 Care Plan Goal for BP management: <140/90 at Goal BMI result Body Mass Index 37.2 BMI Assessment/Plan discussion: High BMI High, discussed plan: lifestyle, weight reduction, dietary, physical activity and alcohol moderation Tobacco/Smoking Status: Tobacco use Status Tobacco use date assessed 09/09/24 09/09/24 16:09 Patient Tobacco Use Status Current everyday Tobacco 09/09/24 16:17 Tobacco use type Cigarette 09/09/24 16:17 PHQ-9: PHQ-9 Score PHQ-9: Total score 0 09/09/24 16:09 Depression Screening Interpretation: Negative Thrive Assessment: Date of Thrive Assessment Date Thrive assessed 09/09/24 09/09/24 16:09 Const Other: Appearance: Alert. Oriented X3. No acute distress. Head: Normal external exam. Normocephalic. Atraumatic. Eyes: Pupils are equal, round, and reactive to light. Extraocular movements intact. Conjunctiva and sclera normal. Eyelids normal. Ears: External auditory canal normal. Tympanic membranes normal. Throat: Pharynx normal. Uvula midline. Moist mucous membranes. Neck: Normal inspection. Neck supple. Full range of motion. Cardiovascular: Normal heart rate and rhythm. Heart sound normal. No murmurs noted. Pulses normal throughout. Respiratory: No respiratory distress. Painless inspiration. Breath sounds normal. No wheezes/rales/rhonchi noted. Chest nontender. No accessory muscle usage noted or decreased air movement noted. Abdomen: Soft and nontender. Bowel sounds normal in all 4 quadrants. No distention noted. No organomegaly noted. No visible injury noted. Back: No costovertebral angle tenderness. Full range of motion noted. Skin: Skin warm and dry. Normal skin color. Normal skin turgor. No rashes/lesions/lacerations noted. Extremities: No lower extremity edema. Extremities exhibit normal range of motion. Neuro: Oriented X 3. No motor deficit. No sensory deficit. Reflexes normal. Results Reviewed Results Reviewed: - DEXA scan: Osteoporosis diagnosed - Mammogram: Normal results on 05/07/24 Coding Level of Care Code New Pt Level 5 (76513) Complex EM visit Add On G2211 Diagnoses Establishing care with new doctor, encounter for Z76. COPD (chronic obstructive pulmonary disease) J44.9 Osteoporosis M81.0 Hyperlipidemia LDL goal <100 E78.5 Hypothyroidism E03.9 Pinched nerve G58.9 Class 2 obesity with body mass index (BMI) of 37.0 to 37.9 in adult E66.812; Z68.37 Colon cancer screening Z12.11 Chronic pain G89.29 Additional Codes PHQ-9 - 80552 - PHQ-9 Billing: Yes ([id number]) MARK-7 Assessment Billing - MARK-7 Assessment Tool: MARK-7 Assessment 62996 ([id number]) Assessment & Plan Assessment & Plan (1) Establishing care with new doctor, encounter for: Code(s): Z76.89 - Persons encountering health services in other specified circumstances Category: Medical (2) COPD (chronic obstructive pulmonary disease): Code(s): J44.9 - Chronic obstructive pulmonary disease, unspecified Category: Medical Plan: The patient will continue using albuterol and Symbicort for COPD management. Smoking cessation is encouraged to improve respiratory health. Condition is chronic and stable will continue to monitor. (3) Osteoporosis: Onset Date: ~05/07/24 Comment: By DEXA scan Code(s): M81.0 - Age-related osteoporosis without current pathological fracture Category: Medical Plan: The patient is advised to continue Fosamax and consider vitamin D supplementation to support bone health. A repeat DEXA scan is recommended in three years to monitor bone density. Condition is chronic and stable will continue to monitor. (4) Hyperlipidemia LDL goal <100: Code(s): E78.5 - Hyperlipidemia, unspecified Category: Medical Plan: The patient will continue atorvastatin for lipid management. Condition is chronic and stable will continue to monitor. (5) Hypothyroidism: Code(s): E03.9 - Hypothyroidism, unspecified Category: Medical Plan: The patient will continue levothyroxine 175 mcg daily for thyroid management. Condition is chronic and stable will continue to monitor. (6) Pinched nerve: Code(s): G58.9 - Mononeuropathy, unspecified Category: Medical Plan: The patient is referred to pain management for further evaluation and potential interventional procedures. Gabapentin and oxycodone will be continued for pain control, with a reduction in oxycodone dosage as discussed. Condition is chronic and stable will continue to monitor. (7) Class 2 obesity with body mass index (BMI) of 37.0 to 37.9 in adult: Code(s): E66.812 - Obesity, class 2; Z68.37 - Body mass index [BMI] 37.0-37.9, adult Category: Medical Plan: Patient to improved diet and exercise regimen. Condition is chronic and stable will continue to monitor. (8) Colon cancer screening: Code(s): Z12.11 - Encounter for screening for malignant neoplasm of colon Category: Medical Plan: Will refer patient for colon cancer screening. Condition is chronic and stable will continue to monitor. (9) Chronic pain: Code(s): G89.29 - Other chronic pain Category: Medical Plan: Patient is currently on oxycodone 15 mg every 4 hours and received a quantity of 120 tablets for 30 day period. Patient will be decreased to oxycodone 15 mg 3 times a day will receive a 90 quantity for 30 days. At the next visit we will attempt to decrease the patient to oxycodone 2 times a day with a quantity of 60 tablets for 30 days. Patient understands and agrees with this plan. She will also be referred to pain management. Condition is chronic and stable will continue to monitor. Plan Plan Patient was informed and verbally consented to the use of an ambient scribe for clinic note documentation during this visit. 1. Chronic Obstructive Pulmonary Disease (Copd) The patient will continue using albuterol and Symbicort for COPD management. Smoking cessation is encouraged to improve respiratory health. 2. Osteoporosis The patient is advised to continue Fosamax and consider vitamin D supplementation to support bone health. A repeat DEXA scan is recommended in three years to monitor bone density. 3. Hyperlipidemia The patient will continue atorvastatin for lipid management. 4. Hypothyroidism The patient will continue levothyroxine 175 mcg daily for thyroid management. 5. Pinched Nerve The patient is referred to pain management for further evaluation and potential interventional procedures. Gabapentin and oxycodone will be continued for pain control, with a reduction in oxycodone dosage as discussed. 6. Total Hip Replacement The patient reports significant improvement in mobility post-surgery and will c ontinue using a walker as needed. During the visit, we discussed the management of COPD with continued use of albuterol and Symbicort, and the importance of smoking cessation. We reviewed the osteoporosis diagnosis and the need for Fosamax and vitamin D supplementation, with a plan to repeat the DEXA scan in three years. The patient will continue atorvastatin for hyperlipidemia and levothyroxine for hypothyroidism. For the pinched nerve, we discussed referral to pain management and the continuation of gabapentin and oxycodone, with a reduction in oxycodone dosage. The patient expressed satisfaction with the outcome of her hip replacement surgery and will continue using a walker as needed. Orders: Orders Comprehensive [place]. Panel Fast Today Z00.00 - Encounter for general adult medical examination without abnormal findings Lipid Panel Today Z00.00 - Encounter for general adult medical examination without abnormal findings Magnesium Today Z00.00 - Encounter for general adult medical examination without abnormal findings Hemoglobin A1c Today Z00.00 - Encounter for general adult medical examination without abnormal findings Vitamin B12 and Folate Today Z00.00 - Encounter for general adult medical examination without abnormal findings C Reactive Protein Today Z00.00 - Encounter for general adult medical examination without abnormal findings Complete Blood Count Auto Diff Today Z00.00 - Encounter for general adult medical examination without abnormal findings Liver Panel Today Z00.00 - Encounter for general adult medical examination without abnormal findings TSH reflex Free T4 Today Z00.00 - Encounter for general adult medical examination without abnormal findings Vitamin D 25-OH Total Today Z00.00 - Encounter for general adult medical examination without abnormal findings Referrals Pain Management Referral M17.11 - Unilateral primary osteoarthritis, right knee, M25.551 - Pain in right hip Gastroenterology Referral Z12.11 - Encounter for screening for malignant neoplasm of colon Medications: New levothyroxine 175 mcg PO DAILY@0600 90 tabs 3RF omeprazole 20 mg PO DAILY 90 caps 3RF albuterol sulfate 90 mcg/actuation 2 inhalations inhalation Q6-8H 8.5 grams 1RF alendronate (Fosamax) 70 mg PO QWEEK 90 tabs 3RF atorvastatin 10 mg PO DAILY 90 tabs 3RF budesonide-formoterol 80-4.5 mcg/actuation (Symbicort) 2 puffs inhalation BID 10.2 grams 3RF gabapentin 400 mg PO BEDTIME 90 caps 3RF naproxen 500 mg PO BID 180 tabs 1RF 90 days oxycodone 15 mg PO Q6H PRN 90 tabs 0RF Pain naloxone 4 mg/actuation (Narcan) spray 1 dose into ONE nostril; alternate nostrils w each dose until help ar bette 1 spray intranasal Q2M 2 ea 1RF Sedation/overdose Patient Instructions: - Continue using albuterol and Symbicort as prescribed for COPD. - Consider quitting smoking to improve lung health. - Take Fosamax and consider vitamin D supplements for bone health. - Continue atorvastatin for cholesterol management. - Continue levothyroxine for thyroid management. - Follow up with pain management for pinched nerve evaluation. - Use a walker as needed for mobility. - Schedule a colonoscopy as referred.
[2024-09-09 16:09] VITALS: BP 120/71; PULSE 64; RESP 16; TEMP 37; O2SAT 96; BMI 37.2
--- OUTSIDE RECORDS SUMMARY | 2024-09-09 16:37 | XMS_ITS | Clinical Summary ---
Author Organization [facility] Address [address] [place] [address] Care Team Providers Care Fruit Packer Name Role Phone Unavailable Primary Care Provider [...] Screening 09/06/2023 09/05/2022 COVID-19 Vaccine (4 - season) 2023 03/03/2021, 06/16/2020, 05/25/2020 Influenza Vaccine (#1) 2024 , 03/03/2020, 03/11/2019, Additional history exists Dental [...]
--- OUTSIDE RECORDS SUMMARY | 2024-09-09 16:38 | XMS_ITS | Patient Health Record ---
Author Organization [facility] Address [address] [place] [id number] Care Team Providers Care Associate Professor Of Management Name Role Phone Geronimo (RETIRED) Kashif QUIJANO Primary Care Provider Unavailable Adam Chopra Jr Unavailable [phone] Reason For Referral No Information Medications Medication [...] Notes Problem Imaging of gastrointestinal tract abnormal ([id number]) Nonspecific abnormal findings on radiological and other examination of gastrointestinal tract (793.4) Active confirmed Plan Of Treatment Future Test Test Name Order Date COLONOSCOPY 05/25/2011 Insurance Providers Payer Name Payer Address Payer Phone Subscriber Number Group Number Insured Name Patient Relationship to Insured Coverage Start Date Coverage End Date [facility] [address] [place] [phone] [id number] NATASHA LOBO Self - patient is the insured Medical (General) History Medical History History ICD Code hypothyroid pinched nerve Surgical History Surgery Date(Month/Year) cholecystectomy
== END 2024-09-09 16:42 | disposition home or self-care (01) ==
LOC: HO.HMCSH 15:46
PROVIDERS: PCP Internal Medicine; Visit Provider Physician Assistant Medical
DX: J44.9 Chronic obstructive pulmonary disease, unspecified (principal); M81.0 Age-related osteoporosis without current pathological fracture; E78.5 Hyperlipidemia, unspecified; E03.9 Hypothyroidism, unspecified; G58.9 Mononeuropathy, unspecified; E66.812 Obesity, class 2; Z68.37 Body mass index [BMI] 37.0-37.9, adult; Z12.11 Encounter for screening for malignant neoplasm of colon; G89.29 Other chronic pain

== ENCOUNTER → 2024-09-09 15:46 | Outpatient (BNVA) | payer OTHER, SELFPAY | PROVIDERS: PCP Internal Medicine; Visit Provider Physician Assistant Medical | DX: M81.0 Age-related osteoporosis without current pathological fracture (principal); J44.9 Chronic obstructive pulmonary disease, unspecified; E03.9 Hypothyroidism, unspecified; E78.5 Hyperlipidemia, unspecified; F17.210 Nicotine dependence, cigarettes, uncomplicated; G58.9 Mononeuropathy, unspecified; E66.812 Obesity, class 2; G89.29 Other chronic pain; M17.11 Unilateral primary osteoarthritis, right knee; M25.551 Pain in right hip; Z68.37 Body mass index [BMI] 37.0-37.9, adult; Z79.899 Other long term (current) drug therapy; Z79.891 Long term (current) use of opiate analgesic | CPT/HCPCS: 96127 ==

== ENCOUNTER 2024-11-05 15:25 | Outpatient (AMB) | payer OTHER, SELFPAY ==
[2024-11-05 15:23] VITALS: BP 116/70; PULSE 74; RESP 16; TEMP 36.6; O2SAT 98; BMI 37.2
--- NOTE | 2024-11-05 15:23 | MHC.PC.OV ---
Vital Signs 11/05/24 15:23 Height 5 ft 6.54 in Weight 234 lb BMI 37.2 BP 116/70 Respiration 16 Pulse 74 Pulse Source Pulse Oximeter Temp 97.9 F Temp Source Temporal Artery Scan Pulse Oximetry (%) 98 Oxygen Delivery Method Room Air Intake Visit Reasons: 1 month follow up - see comments Oil Refiner Required: No Accompanied by: Self / Same As Patient Allergies Penicillins Allergy (Severe, Verified 11/06/24 10:02) Hypotension Medication List - Last Reconciled 11/06/24 by Awilda Villegas PA-C albuterol sulfate 90 mcg/actuation 2 inhalations inhalation Q6-8H alendronate (Fosamax) 70 mg PO QWEEK atorvastatin 10 mg PO DAILY budesonide-formoterol 80-4.5 mcg/actuation (Symbicort) 2 puffs inhalation BID gabapentin 400 mg PO BEDTIME levothyroxine 175 mcg PO DAILY@0600 naloxone 4 mg/actuation (Narcan) 1 spray intranasal Q2M naproxen 500 mg PO BID 90 days omeprazole 20 mg PO DAILY oxycodone 15 mg PO Q6H PRN Tobacco use date assessed: 11/05/24 Dental Screening Dental Screen Date: 09/09/24 HPI 1 month follow up - see comments HPI Details The patient is a 59-year-old female presenting for a follow-up on chronic pain management and medication adjustment. The patient reports chronic pain primarily in her right leg, which has been managed with oxycodone. She was previously on oxycodone 15 mg four times a day, which was reduced to three times a day at the last visit, and is now being reduced to twice a day. The patient has signed a pain contract and is agreeable to random drug screenings and pill counts as part of her pain management plan. The patient has been referred to pain management for alternative therapies, as they do not prescribe pain medications. She has not yet attended a pain management session but is aware of the referral. [facility] Medical History Chronic pain Colon cancer screening History of mammogram (~05/07/24) Class 2 obesity with body mass index (BMI) of 37.0 to 37.9 in adult Pinched nerve Hypothyroidism Hyperlipidemia LDL goal <100 Osteoporosis (~05/07/24) COPD (chronic obstructive pulmonary disease) Establishing care with new doctor, encounter for Right hip pain Arthritis Thyroid disease GERD (gastroesophageal reflux disease) Asthma History of high cholesterol Surgical History History of total hip replacement Hx of cholecystectomy H/O colonoscopy Family History Father Cancer of blood vessel Mother Lung cancer Social History Household Members: Family Housing: House Are you a primary healthcare network consultant to a significant other at home: No Do you presently have visiting nurse or other home services: No Alcohol intake: current Alcohol intake frequency: does not drink Patient Tobacco Use Status: Current everyday Tobacco user Tobacco use type: Cigarette Cigarettes Per Day: 2 service: No Current occupational status: employed Cognitive needs: No Hearing needs: No Vision needs: Yes (rx glasses) Questionnaire PHQ-9 Over the last 2 weeks, how often have you been bothered by any of the following problems? 1. Little interest or pleasure in doing things: not at all 2. Feeling down, depressed, or hopeless: not at all 3. Trouble falling or staying asleep, or sleeping too much: not at all 4. Feeling tired or having little energy: not at all 5. Poor appetite or overeating: not at all 6. Feeling bad about yourself - or that you are a failure or have let yourself or your family down: not at all 7. Trouble concentrating on things, such as reading the newspaper or watching television: not at all 8. Moving or speaking so slowly that other people could have noticed. Or the opposite - being so fidgety or restless that you have been moving around a lot more than usual: not at all 9. Thoughts that you would be better off or of hurting yourself in some way: not at all Total score: 0 Depression Screening Interpretation: Negative Depression Screening Done: Yes 96918 - PHQ-9 Billing: Yes Source: Developed by Drs. Mark Carias, Lisset Zavaleta, Naveed Fowler and colleagues, with an educational kyler from [employer]. Thrive Questionnaire Date Thrive assessed: 07/15/25 I am a: Patient What is your living situation today?: I have a steady place to live Within the past 12 months, did the food you bought not last and you didn't have the money to get more?: Never true Within the past 12 months, did you worry whether your food would run out before you got money to buy more?: Never true Do you have trouble paying for medicines?: No Do you have trouble getting transportation to medical appointments?: No Do you have trouble paying your heating and electricity bill?: No Do you have trouble taking care of your child, family member or friend?: No Do you have trouble with day-to-day activities such as bathing, preparing meals, shopping, managing finances, etc.?: No Are you currently unemployed and looking for a job?: No Are you interested in more education?: No Please select the resources that you would like help with: None THRIVE Score: 0 AUDIT C Alcohol Use Questionnaire (AUDIT-C) 1. How often do you have a drink containing alcohol?: Never 3. How often do you have six or more drinks on one occasion?: Never Total Score: 0 Score Reviewed/Action Taken: No MARK-7 AMB Questionnaire MARK-7 Date MARK - 7 assessed: 09/09/24 Feeling nervous, anxious, or on edge: 0 = Not at all Not being able to stop or control worryin = Not at all Worrying too much about different things: 0 = Not at all Trouble relaxin = Not at all Being so restless that it is hard to sit still: 0 = Not at all Becoming easily annoyed or irritable: 0 = Not at all Feeling afraid as if something awful might happen: 0 = Not at all Total MARK-7 score (0-4 normal; 5-9 mild; 10-14 moderate; 15-21 severe): 0 Source: Developed by Drs. Mark Carias, Lisset Zavaleta, Naveed Fowler and colleagues, with an educational kyler from [employer]. MARK-7 Assessment Billing MARK-7 Assessment Tool: MARK-7 Assessment 33316 Review of Systems Const Details: - Musculoskeletal: Reports chronic right leg pain. - General: Denies any other acute complaints or concerns. All systems reviewed & are unremarkable except as noted in HPI and below Physical exam (Primary Care) Vital Signs: Last Vital Signs Temp 97.9 F 11/05/24 15:23 Pulse 74 11/05/24 15:23 Resp 16 11/05/24 15:23 BP 116/70 11/05/24 15:23 Pulse Ox 98 11/05/24 15:23 Oxygen Delivery Method Room Air 11/05/24 15:23 Care Plan Goal for BP management: <140/90 at Goal BMI result Body Mass Index 37.2 BMI Assessment/Plan discussion: High BMI High, discussed plan: lifestyle, weight reduction, dietary, physical activity, alcohol moderation and other Tobacco/Smoking Status: Tobacco use Status Tobacco use date assessed 11/05/24 11/05/24 15:32 Patient Tobacco Use Status Current everyday Tobacco 11/05/24 15:32 Tobacco use type Cigarette 11/05/24 15:32 PHQ-9: PHQ-9 Score PHQ-9: Total score 0 11/05/24 15:32 Depression Screening Interpretation: Negative Thrive Assessment: Date of Thrive Assessment Date Thrive assessed 09/09/24 11/05/24 15:32 Const Other: Appearance: Alert. Oriented X3. No acute distress. Head: Normal external exam. Normocephalic. Atraumatic. Eyes: Pupils are equal, round, and reactive to light. Extraocular movements intact. Conjunctiva and sclera normal. Eyelids normal. Throat: Pharynx normal. Uvula midline. Moist mucous membranes. Neck: Normal inspection. Neck supple. Full range of motion. Cardiovascular: Normal heart rate and rhythm. Heart sound normal. No murmurs noted. Pulses normal throughout. Respiratory: No respiratory distress. Painless inspiration. Breath sounds normal. No wheezes/rales/rhonchi noted. No accessory muscle usage noted or decreased air movement noted. Back: Full range of motion noted. Skin: Skin warm and dry. Normal skin color. Normal skin turgor. No rashes/lesions/lacerations noted. Extremities: Extremities exhibit normal range of motion. Neuro: Oriented X 3. No motor deficit. No sensory deficit. Reflexes normal. Coding Level of Care Code Est Pt Level 4 (58937) Complex EM visit Add On G2211 Diagnoses Chronic pain G89.29 Additional Codes MARK-7 Assessment Billing - MARK-7 Assessment Tool: MARK-7 Assessment 56394 ([id number]) PHQ-9 - 66488 - PHQ-9 Billing: Yes ([id number]) Assessment & Plan Assessment & Plan (1) Chronic pain: Code(s): G89.29 - Other chronic pain Category: Medical Plan: The patient's oxycodone dosage has been reduced from 15 mg three times a day to twice a day as part of her chronic pain management plan. She has signed a pain contract and will undergo random drug screenings and pill counts to ensure compliance and safety. The patient has been referred to pain management for alternative therapies, as they do not prescribe pain medications. Plan Plan Patient was informed and verbally consented to the use of an ambient scribe for clinic note documentation during this visit. 1. Chronic Pain Management The patient's oxycodone dosage has been reduced from 15 mg three times a day to twice a day as part of her chronic pain management plan. She has signed a pain contract and will undergo random drug screenings and pill counts to ensure compliance and safety. The patient has been referred to pain management for alternative therapies, as they do not prescribe pain medications. She was also given Narcan here in the office to take home. During the visit, I discussed with the patient the importance of adhering to the pain management plan, including the reduction of oxycodone dosage and the necessity of random drug screenings and pill counts. I also informed her about the referral to pain management for alternative therapies and emphasized that they do not prescribe pain medications. The patient was agreeable to the plan and signed the necessary paperwork, including the pain contract. Orders: Orders Drug Screen Urine 11/05/24 M16.12 - Unilateral primary osteoarthritis, left hip, M17.11 - Unilateral primary osteoarthritis, right knee, M17.12 - Unilateral primary osteoarthritis, left knee, M25.551 - Pain in right hip, Z96.642 - Presence of left artificial hip joint, Z96.649 - Presence of unspecified artificial hip joint, Z96.652 - Presence of left artificial knee joint Patient Instructions: - Follow the adjusted oxycodone dosage as prescribed. - Attend the scheduled drug screening and bring medications for pill counts as instructed. - Follow up with the pain management referral for alternative therapies. - Return for a follow-up appointment in one month.
--- OUTSIDE RECORDS SUMMARY | 2024-11-05 18:21 | XMS_ITS | Clinical Summary ---
Author Organization [facility] Address [address] [place] [phone] Phone Care Team Providers Care Sales Assistant Displays Name Role Phone Unavailable Primary Care Provider Unavailabl e Medications acetaminophen (TYLENOL) 325 mg tablet Take 650 mg by mouth every 6 (six) hours as needed for pain (specific location in comments). 09/06/2023 Active aspirin 325 MG tablet Take 325 mg by mouth 2 (two) times a day (once in the morning and once in the afternoon). 325 mg PO BID for 42 days 09/06/2023 Active celecoxib (CELEBREX) 100 MG capsule Take 200 mg by mouth 2 (two) times a day. 200 g PO BID PRN for 30 days 09/06/2023 Active levothyroxine (SYNTHROID, LEVOTHROID) 175 MCG tablet Take 175 mcg by mouth every morning. 09/06/2023 Active oxyCODONE 15 MG immediate release tablet Take 15 mg by mouth every 6 (six) hours as needed for pain (specific location in comments). 09/06/2023 Active omeprazole (PRILOSEC) 20 MG capsule Take 20 mg by mouth daily. 09/06/2023 Active atorvastatin (LIPITOR) 10 MG tablet Take 10 mg by mouth daily. 09/06/2023 Active budesonide-form oterol 80-4.5 mcg/actuation inhaler Inhale 2 puffs into the lungs 2 (two) times a day. 09/06/2023 Active gabapentin (NEURONTIN) 400 MG capsule Take 400 mg by mouth nightly at bedtime. 09/06/2023 Active Social History Tobacco Use Types Packs/Day Years Used Date Smoking Tobacco: Never Assessed Home Health Assessment: Transportation Answer Date Recorded Lack of Transportation (Medical) No 09/19/2023 Lack of Transportation (Non-Medical) No 09/19/2023 Patient Unable or Declines to Respond No 09/19/2023 Education Answer Date Recorded Are you interested in more education? Not on malik e 08/10/2023 Are you concerned about learning? Not on file 08/10/2023 No 08/10/2023 No 08/10/2023 Digital Access Answer Date Recorded No 08/10/2023 No 08/10/2023 Reliable internet access at home? Not on file 08/10/2023 Device with a working camera? Not on file Comments Unknown Sex and Gender Information Value Date Recorded Sex Assigned at Not on file Legal Sex Female 10:39 AM EDT Gender Identity Not on file Sexual Orientation Not on file Last Filed Vital Signs Vital Sign Reading Time Taken Comments Blood Pressure 102/60 09/19/2023 2:40 PM EDT Pulse 70 09/19/2023 2:40 PM EDT Temperature 36.4 C (97.6 F) 09/12/2023 1:28 PM EDT Respiratory Rate 16 09/19/2023 2:40 PM EDT Oxygen Saturation 95% 09/19/2023 2:40 PM EDT Inhaled Oxygen Concentration - - Weight - - Height - - Body Mass Index - - Plan of Treatment Not on file Medical Devices Not on file Insurance [facility] [address] [place], [place] [address] [place] [place] [address] [place] [address]O [facility] H[facility] Additional Source Comments The information contained in this document represents components of the legal health record. It is not the complete legal health record.[facility]
--- OUTSIDE RECORDS SUMMARY | 2024-11-05 18:21 | XMS_ITS | Patient Health Record ---
Author Organization [facility] Address [address] [place] [phone] Care Team Providers Care Test Engine Evaluator Name Role Phone Geronimo (RETIRED) Kashif QUIJANO Primary Care Provider Unavailable Adam Chopra Jr Unavailable Reason For Referral No Information Medications Medication SIG (Take, Route, Fr equency, Duration) Notes Start Date End Date Status Levoxyl Active Gabapentin 02/26/2025 02/26/2025 Active MoviPrep 100 GM as directed before c olonoscopy Orally for 1 dose 05/25/2011 02/26/2025 Active oxyCODONE HCl Active Social History Tobacco [...] Notes Problem Imaging of gastrointestinal tract abnormal (352345850) Nonspecific abnormal findings on radiological and other examination of gastrointestinal tract (793.4) Active confirmed Plan Of Treatment Future Test Test Name Order Date COLONOSCOPY 05/25/2011 Next Appt Details Provider Name:Adam astudillo Jr, 03/12/2025 03:55:00 PM, [address], [address], [place], [address], Insurance Providers Payer Name Payer Address Payer Phone Subscriber Number Group Number Insured Name Patient Relationship to Insured Coverage Start Date Coverage End Date [facility] [address] [place] [place] [phone] [id number] NATASHA LOBO Self - patient is the insured Medical (General) History Medical History History ICD Code hypothyroid pinched nerve Surgical History Surgery Date(Month/Year) cholecystectomy
--- OUTSIDE RECORDS SUMMARY | 2024-11-05 18:21 | XMS_ITS | Clinical Summary ---
Author Organization [employer] Address [address] [place] [address] Care Team Providers Care Transmissions Systems Operator Name Role Phone Unavailable Primary Care Provider [...] 09/06/2023 09/05/2022 COVID-19 Vaccine (4 - season) 2024 03/03/2021, 06/16/2020, 05/25/2020 Influenza Vaccine (#1) 2024 [...]
== END 2024-11-05 16:08 | disposition home or self-care (01) ==
LOC: HO.HMCSH 15:25
PROVIDERS: PCP Internal Medicine; Visit Provider Physician Assistant Medical
DX: G89.29 Other chronic pain (principal)

== ENCOUNTER → 2024-11-05 15:25 | Outpatient (BNVA) | payer OTHER, SELFPAY | PROVIDERS: PCP Internal Medicine; Visit Provider Physician Assistant Medical | DX: G89.29 Other chronic pain (principal); R82.6 Abnormal urine levels of substances chiefly nonmedicinal as to source; Z79.891 Long term (current) use of opiate analgesic; Z13.31 Encounter for screening for depression | CPT/HCPCS: 96127 ==

== ENCOUNTER 2024-11-10 07:19 | Outpatient (REF) | payer OTHER, SELFPAY ==
--- OUTSIDE RECORDS SUMMARY | 2024-11-10 07:22 | XMS_ITS | Clinical Summary ---
Author Organization [employer] Address [address] [place] [address] Care Team Providers Care Knockdown Man Name Role Phone Unavailable Primary Care Provider [...]
--- OUTSIDE RECORDS SUMMARY | 2024-11-10 07:22 | XMS_ITS | Patient Health Record ---
Author Organization [facility] Address [address] [place] [phone] Care Team Providers Care Staffing Administrator Name Role Phone Geronimo (RETIRED) Kashif QUIJANO Primary Care Provider Unavailable Aadm Chopra Jr Unavailable Reason For Referral No [...] Notes Problem Imaging of gastrointestinal tract abnormal (177913105) Nonspecific abnormal findings on radiological and other examination of gastrointestinal tract (793.4) Active confirmed Plan Of Treatment Future Test Test Name Order Date COLONOSCOPY 05/25/2011 Next Appt Details Provider Name:Adam astudillo Jr, 03/12/2025 03:55:00 PM, [address], [address], [place], [address], Insurance Providers Payer Name Payer Address Payer Phone Subscriber Number Group Number Insured Name Patient Relationship to Insured Coverage Start Date Coverage End Date [facility] [address] [place] [phone] [id number] NATASHA LOBO Self - patient is the insured Medical (General) History Medical History History ICD Code hypothyroid pinched nerve Surgical History Surgery Date(Month/Year) cholecystectomy
--- OUTSIDE RECORDS SUMMARY | 2024-11-10 07:22 | XMS_ITS | Clinical Summary ---
Author Organization [facility] Address [address] [place] [phone] Phone Care Team Providers Care President College [employer] Name Role Phone Unavailable Primary Care Provider [...] file Medical Devices Not on file Insurance [facility] [address] [place], [place] [id number] [place], [place] [address] [place], [place] [address] [facility] H[facility] Additional Source Comments The information contained in this document represents components of the legal health record. It is not the complete legal health record.[facility]
[2024-11-10 10:07] LABS: MANUAL DIFF FLAG NO
[2024-11-10 10:09] LABS: Hematocrit 42.0 % (37.0-47.0); Hemoglobin 13.7 g/dl (12.0-16.0); Imm Gran Abs Auto 0.02 X10*3/uL (0.00-0.03); Imm Gran Pct Auto 0.3 % (0.0-0.4); Lymphocytes Absolute Auto 1.6 X10*3/uL (1.2-4.9); Mean Corpuscular HGB Conc 32.6 g/dl (31.0-35.0); Mean Corpuscular Hemoglobin 31.9 pg (27.0-33.0); Mean Corpuscular Volume 97.7 fL (80.0-98.0); NRBC Abs Auto 0.000 X10*3/uL (0.0-0.012); NRBC Pct Auto 0.0 /100WBC (0.0-0.2); Platelet Count 255 X10*3/uL (160-400); Red Blood Count 4.30 X10*6/uL (4.20-5.50); White Blood Count 6.0 X10*3/uL (4.8-10.8)
[2024-11-10 10:30] LABS: Hemoglobin A1C 131.6467 umol/L; Total Hemoglobin (HGBA1C) 3483.2078 umol/L
[2024-11-10 10:36] LABS: Cannabinoid Screen Urine Not Detected (Not Detect)
[2024-11-10 10:40] LABS: Alanine Aminotransferase 15 U/L (0-31); Albumin Level 4.3 g/dL (3.5-5.0); Alkaline Phosphatase 74 U/L (39-117); Anion Gap 13 (12-20); Aspartate Amino Transferase 24 U/L (5-31); Blood Urea Nitrogen 18 mg/dL (9-16); Calcium 8.6 mg/dL (8.4-10.2); Carbon Dioxide 29 mmol/L (22-29); Chloride 105 mmol/L (96-108); Cholesterol 257 mg/dL (<200); Estimated Glomerular Filt Rate 58; HDL Cholesterol 54 mg/dL (>40); Magnesium 2.2 mg/dL (1.6-2.6); Potassium 4.7 mmol/L (3.3-5.1); Sodium 142 mmol/L (135-145); Total Protein 6.9 g/dL (6.5-8.0); Triglycerides 140 mg/dL (<150)
[2024-11-10 10:56] LABS: Folate 5.4 ng/mL (> or = 4.0); Vitamin B12 509 pg/mL (200-900)
[2024-11-10 12:18] LABS: Free T4 (Free Thyroxine) < 0.42 ng/dL (0.71-1.85)
== END 2024-11-10 07:20 | disposition home or self-care (01) ==
LOC: HO.HMGCLDS 07:19
PROVIDERS: PCP Internal Medicine; Visit Provider Physician Assistant Medical
DX: Z00.00 Encounter for general adult medical examination without abnormal findings (principal); Z13.29 Encounter for screening for other suspected endocrine disorder; Z13.1 Encounter for screening for diabetes mellitus; Z13.6 Encounter for screening for cardiovascular disorders; M16.12 Unilateral primary osteoarthritis, left hip; M17.11 Unilateral primary osteoarthritis, right knee; M17.12 Unilateral primary osteoarthritis, left knee; M25.551 Pain in right hip; Z96.652 Presence of left artificial knee joint; Z96.642 Presence of left artificial hip joint; Z96.649 Presence of unspecified artificial hip joint
CPT/HCPCS: 80053; 80061; 80076; 80307; 82248; 82306; 82607; 82746; 83036; 83735; 84439; 84443; 85025; 86140